=== PATIENT | male | born 1945 | race African-American/Black ===

== ENCOUNTER 2017-11-26 09:50 | Day surgery (SDC) | payer OTHER ==
[2017-11-26] MEDS ORDERED: NA CHLORIDE 0.9% 500 ML ONE (12:04)
[2017-11-26 16:22] LABS: Hematocrit 23.2 % (39.6-49.0)
== END 2017-11-26 16:10 | disposition home or self-care (01) ==
LOC: DS 09:50
PROVIDERS: ATTEND Internal Medicine Hematology & Oncology
DX: N18.9 Chronic kidney disease, unspecified (principal); D63.1 Anemia in chronic kidney disease; D50.0 Iron deficiency anemia secondary to blood loss (chronic)
CPT/HCPCS: 36415; 36430; 85014; 85018; 86850; 86900; 86901; P9016

== ENCOUNTER 2018-03-27 07:18 | Day surgery (SDC) | payer MEDICARE, OTHER ==
[2018-03-27] MEDS ORDERED: NA CHLORIDE 0.9% 500 ML ONE ×2 (07:55→10:20)
== END 2018-03-27 15:15 | disposition home or self-care (01) ==
LOC: DS 07:18
PROVIDERS: ATTEND Internal Medicine Hematology & Oncology
DX: N18.9 Chronic kidney disease, unspecified (principal); D63.1 Anemia in chronic kidney disease; D50.0 Iron deficiency anemia secondary to blood loss (chronic)
CPT/HCPCS: 36415; 36430; 85014; 85018; 86850; 86900; 86901; P9016 ×2

== ENCOUNTER 2018-07-18 07:09 | Day surgery (SDC) | payer OTHER ==
[2018-07-18] MEDS ORDERED: NA CHLORIDE 0.9% 500 ML ONE ×2 (08:05→10:44)
== END 2018-07-18 15:38 | disposition home or self-care (01) ==
LOC: DS 07:09
PROVIDERS: ATTEND Internal Medicine Hematology & Oncology
DX: D63.1 Anemia in chronic kidney disease (principal)
CPT/HCPCS: 36415; 36430; 85014; 85018; 86850; 86900; 86901; P9016 ×2

== ENCOUNTER 2018-08-30 07:34 | Day surgery (SDC) | payer OTHER ==
--- OUTSIDE RECORDS SUMMARY | 2018-08-30 08:07 | XMS REPORT ---
:1945 [facility] Address [address] [place] [address] Dr. Morales [address] [place] [address] Care Team Providers Name Role Phone Unavailable Unavailable Unavailable Problems This patient has no known problems. Allergies, Adverse Reactions, Alerts This patient has no known allergies or adverse reactions. Medications This patient has no known medications.
[2018-08-30] MEDS ORDERED: NA CHLORIDE 0.9% 250 ML ONE ×2 (08:31→11:25)
[2018-08-30 16:39] LABS: Hematocrit 26.5 % (39.6-49.0)
== END 2018-08-30 16:15 | disposition home or self-care (01) ==
LOC: DS 07:34
PROVIDERS: ATTEND Internal Medicine Hematology & Oncology
DX: D50.0 Iron deficiency anemia secondary to blood loss (chronic) (principal); D63.1 Anemia in chronic kidney disease; N18.9 Chronic kidney disease, unspecified; J44.9 Chronic obstructive pulmonary disease, unspecified
CPT/HCPCS: 36415; 86900; 86850; 86901; 85018; 85014; 36430; P9016 ×2

== ENCOUNTER 2018-09-25 09:00 | Day surgery (SDC) | payer OTHER ==
--- OUTSIDE RECORDS SUMMARY | 2018-09-25 09:08 | XMS REPORT ---
:1945 [facility] Address [address] [place] [address] Dr. Morales [address] [place] [address] Care Team Providers Name Role Phone Unavailable Unavailable Unavailable Problems This patient has no known problems. Allergies, Adverse Reactions, Alerts This patient has no known allergies or adverse reactions. Medications This patient has no known medications.
[2018-09-25] MEDS ORDERED: NA CHLORIDE 0.9% 500 ML ONE (09:31)
[2018-09-25 18:22] LABS: Hematocrit 23.1 % (39.6-49.0)
== END 2018-09-25 17:34 | disposition home or self-care (01) ==
LOC: DS 09:00
PROVIDERS: ATTEND Internal Medicine Hematology & Oncology
DX: D50.0 Iron deficiency anemia secondary to blood loss (chronic) (principal); D63.1 Anemia in chronic kidney disease; N18.9 Chronic kidney disease, unspecified
CPT/HCPCS: 36415; 86900; 86850; 86901; 85018; 85014; 36430; P9016 ×2

== ENCOUNTER → 2018-10-10 | Day surgery (SDC) | payer OTHER ==
[~2018-10-10] MED LIST: NA CHLORIDE 0.9% 250 ML ONE
--- OUTSIDE RECORDS SUMMARY | 2018-10-10 08:14 | XMS REPORT ---
:1945 Author Organization [facility] Address [address] [place] [address] Dr. Morales [address] [place] [address] Care Team Providers Name Role Phone Unavailable Unavailable Unavailable Problems This patient has no known problems. Allergies, Adverse Reactions, Alerts This patient has no known allergies or adverse reactions. Medications This patient has no known medications.
[2018-10-10 16:48] LABS: Hematocrit 21.7 % (39.6-49.0)
== END ==
LOC: DS 08:12
PROVIDERS: ATTEND Internal Medicine Hematology & Oncology
DX: N18.9 Chronic kidney disease, unspecified (principal); D63.1 Anemia in chronic kidney disease; D50.0 Iron deficiency anemia secondary to blood loss (chronic); K55.21 Angiodysplasia of colon with hemorrhage
CPT/HCPCS: 36415; 86900; 86850; 86901; 85018; 85014; 36430; P9016 ×3

== ENCOUNTER 2018-12-17 13:13 | Emergency (ER) | payer OTHER ==
--- OUTSIDE RECORDS SUMMARY | 2018-12-17 13:16 | XMS REPORT ---
:1945 [facility] Address [address] [place] [address] Dr. Morales [address] [place] [address] Care Team Providers Name Role Phone Unavailable Unavailable Unavailable Problems This patient has no known problems. Allergies, Adverse Reactions, Alerts This patient has no known allergies or adverse reactions. Medications This patient has no known medications.
--- NOTE | 2018-12-17 13:51 | RAD REPORT ---
EXAM DESCRIPTION: RAD - Chest Single View - 12/17/2018 1:45 pm CLINICAL HISTORY: Dyspnea, COPD COMPARISON: May 2016 TECHNIQUE: AP portable chest image was obtained 1334 hours . FINDINGS: Lungs are fibrotic. Emphysematous changes in the upper lung rubio noted. Lung parenchymal pattern is similar to comparison. No focal mass, consolidation or failure finding. Mediastinal and h ilar regions are normal range. Granulomatous calcifications seen. Heart and vasculature are normal. No measurable pleural effusion and no pneumothorax. No acute bony abnormality seen. No acute aortic findings suspected. IMPRESSION: COPD changes similar to May 2016. No acute finding.
[2018-12-17 14:32] LABS: Absolute Lymphocytes (CBC) 0.8 K/uL (0.7-4.9); Basophils % 1.5 % (0-1.3); Eosinophils % 7.8 % (0-4.4); Hematocrit 21.2 % (39.6-49.0); Lymphocytes % 17.3 % (15.3-44.8); MPV 10.1 fL (7.6-11.3); Monocytes % 7.9 % (3.3-12.3); RBC Red Blood Cell Count 2.28 M/uL (4.33-5.43)
[2018-12-17] MEDS ORDERED: MAGNESIUM SULFATE 1 gm IVPB 0 GM/0 ML BAG IV ONE (14:41)
[2018-12-17] MEDS ORDERED: IPRATROPIUM BROM 0.5MG/2.5ML ONE (14:41)
[2018-12-17] MEDS ORDERED: METHYLPREDNISOLONE 125 MG INJ ONE (14:41)
[2018-12-17] MEDS ORDERED: LEVALBUTEROL 1.25 MG/3 ML NEB ONE (14:41)
--- NOTE | 2018-12-17 14:47 | EKG ---
Test Date: 2018-12-17 Test Time: 13:39:19 Extension Supervisor: AG/S MEASUREMENT RESULTS: Intervals: Rate: 80 LA: 158 QRSD: 122 QT: 414 QTc: 477 Diana: P: 73 LA: 158 QRS: 12 T: 70 INTERPRETIVE STATEMENTS: Normal sinus rhythm Nonspecific intraventricular conduction delay Borderline ECG Compared to ECG 06/08/2016 17:36:35 Myocardial infarct finding no longer present Electronically Signed On 12-17-18 14:47:06 CDT by Higinio Newsome
[2018-12-17 14:49] LABS: Potassium 5.3 mmol/L (3.5-5.1)
[2018-12-17 16:06] LABS: Anisocytosis 2+; Blood Morphology Comment NOTED (NOT SEEN); Platelet Estimate ADEQ; Rouleau NOTED
--- NOTE | 2018-12-17 16:37 | EDPHYS ---
Physician Documentation [facility] Name: John Fulton Age: 73 yrs Sex: Male : 1945 Arrival Date: 12/17/2018 Time: 13:14 Bed 5 Private MD: Fidel Lunsford R ED Physician Austin Menard HPI: 12/17 13:25 This 73 yrs old Black Male presents to ER via Wheelchair with complaints of Shortness rn Of Breath. 13:25 The patient has shortness of breath with light activity. Onset: The symptoms/episode rn began/occurred yesterday. Duration: The symptoms are intermittent. The patient's shortness of breath is aggravated by exertion, light activity, walking. Severity of symptoms: At their worst the symptoms were moderate in the emergency department the symptoms are unchanged. The patient has experienced similar episodes in the past. Reports sob, began yesterday, doesn't feel sick, denies chest pain, no hemoptysis, no leg swelling, feels like COPD acting up. . Historical: - Allergies: 13:18 No Known Allergies; aj1 - PMHx: 13:18 Hypertension; iron deficiency; COPD; aj1 - Immunization history:: Flu vaccine is up to date. - Social history:: Smoking status: Patient/guardian denies using tobacco. - Ebola Screening: : Patient denies travel to an Ebola-affected area in the 21 days before illness onset. - Family history:: not pertinent. - Hospitalizations: : No recent hospitalization is reported. ROS: 13:25 Constitutional: Negative for fever, chills, and weight loss, Eyes: Negative for injury, rn pain, redness, and discharge, Cardiovascular: Negative for chest pain, palpitations, and edema, Respiratory: + sob, negative for hemoptysis or cough Abdomen/GI: Negative for abdominal pain, nausea, vomiting, diarrhea, and constipation, MS/Extremity: Negative for injury and deformity, Skin: Negative for injury, rash, and discoloration, Neuro: Negative for headache, numbness, tingling, and seizure, + generalized weakness Exam: 13:25 Constitutional: This is a well developed, well nourished patient who is awake, alert, rn + appears sob Head/Face: Normocephalic, atraumatic. Eyes: Pupils equal round and reactive to light, extra-ocular motions intact. Lids and lashes normal. Conjunctiva and sclera are non-icteric and not injected. Cornea within normal limits. Periorbital areas with no swelling, redness, or edema. ENT: no oral swelling, no stridor Cardiovascular: Regular rate and rhythm. No pulse deficits. Respiratory: + tachypnea and diminished breath sounds bilateral lung bases. + mild intercostal retractions. Skin: Warm, dry MS/ Extremity: Pulses equal, no cyanosis. Neurovascular intact. Full, normal range of motion. Equal circumference. Neuro: Awake and alert, GCS 15, oriented to person, place, time, and situation. Cranial nerves II-XII grossly intact. Motor strength 5/5 in all extremities. Sensory grossly intact. Cerebellar exam normal. Normal gait. Vital Signs: 13:18 BP 127 / 69; Pulse 89; Resp 28; Temp 98.0; Pulse Ox 98% on R/A; Weight 80.74 kg (R); aj1 Height 5 ft. 11 in. (180.34 cm) (R); Pain 0/10; 14:30 BP 132 / 78; Pulse 87; Resp 24; Pulse Ox 95% on R/A; ph 15:30 BP 122 / 76; Pulse 85; Resp 20; Pulse Ox 95% on R/A; ph 16:30 BP 136 / 74; Pulse 87; Resp 22; Temp 98.1; Pulse Ox 96% on R/A; ph 13:18 Body Mass Index 24.83 (80.74 kg, 180.34 cm) aj1 MDM: 13:19 Patient medically screened. rn 15:12 ED course: Pt states that has known anemia, had endoscopy 1-2 weeks ago, also gets seen rn by Dr. Turpin for anemia and gets intermittent shots and blood transfusions. Has f/u with Dr. Turpin tomorrow. . 16:33 Differential diagnosis: Anemia Chronic Obstructive Pulmonary Disease pneumonia, rn Pneumothorax pulmonary edema. Data reviewed: vital signs, nurses notes, lab test result(s), EKG, radiologic studies, plain films, and as a result, I will discharge patient. Counseling: I had a detailed discussion with the patient and/or guardian regarding: the historical points, exam findings, and any diagnostic results supporting the discharge/admit diagnosis, lab results, radiology results, the need for outpatient follow up, to return to the emergency department if symptoms worsen or persist or if there are any questions or concerns that arise at home. Response to treatment: the patient's symptoms have markedly improved after treatment, and as a result, I will discharge patient. ED course: Pt states back to baseline, likely combination of chronic anemia and COPD. Given option of transfusion today in addition to breathing treatments, states feels much better and would rather go home and see Dr. Turpin tomorrow. Has chronic anemia, denies active bleeding, and had recent endoscopy. Return precautions given. Pt ambulated around ER and then to bathroom, smiling and stating feels much better. . 12/17 13:25 Order name: CBC with Diff; Complete Time: 16:09 rn 12/17 13:25 Order name: Basic Metabolic Panel; Complete Time: 15:05 rn 12/17 13:25 Order name: Procalcitonin; Complete Time: 15:24 rn 12/17 13:25 Order name: XRAY Chest (1 view); Complete Time: 13:54 rn 12/17 16:05 Order name: Manual Differential; Complete Time: 16:09 EDMS 12/17 13:25 Order name: IV Start rn 12/17 13:25 Order name: EKG; Complete Time: 13:26 rn 12/17 13:25 Order name: EKG - Nurse/Tech; Complete Time: 14:20 rn Administered Medications: 14:32 Drug: Xopenex (3) 1.25 mg Route: Inhalation; ph 16:00 Follow up: Response: No adverse reaction; Marked relief of symptoms ph 14:32 Drug: AtroVENT Aerosol 0.5 mg Route: Inhalation; ph 16:00 Follow up: Response: No adverse reaction; Marked relief of symptoms ph 15:06 Drug: SOLU-Medrol 125 mg {Note: given IM to R deltoid.} Route: IVP; Site: right upper ph arm; 16:00 Follow up: Response: No adverse reaction; Marked relief of symptoms ph 15:12 Drug: Xopenex 1.25 mg Route: Inhalation; ph 16:00 Follow up: Response: No adverse reaction; Marked relief of symptoms ph 19:31 Not Given (Physician Discretion): Magnesium Sulfate 1 grams IVPB once over 1 hrs ph Disposition: 12/17/18 16:36 Discharged to Home. Impression: Chronic obstructive pulmonary disease with (acute) exacerbation, Chronic anemia. - Condition is Stable. - Discharge Instructions: Anemia, Nonspecific, Chronic Obstructive Pulmonary Disease Exacerbation. - Prescriptions for Prednisone 20 mg Oral Tablet - take 3 tablet by ORAL route once daily for 5 days; 15 tablet. Albuterol Sulfate 90 mcg/actuation Inhalation - inhale 2 puff by INHALATION route every 4-6 hours; 1 Inhaler. - Medication Reconciliation Form, Thank You Letter, Antibiotic Education, Prescription Opioid Use form. - Follow up: Shahla García MD; When: Tomorrow; Reason: Recheck today's complaints, Re-evaluation by your physician. - Problem is new. - Symptoms have improved. Signatures: Dispatcher [employer] EDMS Giselle Hdz RN RN aj1 Austin Menard MD MD rn Hall, Patricia, RN RN ph Corrections: (The following items were deleted from the chart) 17:05 16:36 12/17/2018 16:36 Discharged to Home. Impression: Chronic obstructive pulmonary ph disease with (acute) exacerbation; Chronic anemia. Condition is Stable. Forms are Medication Reconciliation Form, Thank You Letter, Antibiotic Education, Prescription Opioid Use. Follow up: Shahla Bunch; When: Tomorrow; Reason: Recheck today's complaints, Re-evaluation by your physician. Problem is new. Symptoms have improved. peggy
--- NOTE | 2018-12-17 16:37 | ER ---
Nurse's Notes [facility] Name: John Fulton Age: 73 yrs Sex: Male : 1945 Arrival Date: 12/17/2018 Time: 13:14 Bed 5 Private MD: Fidel Lunsford R Diagnosis: Chronic obstructive pulmonary disease with (acute) exacerbation;Chronic anemia Presentation: 12/17 13:17 Presenting complaint: Patient states: Shortness of breath since last night. Denies aj1 cough, denies fever. Transition of care: patient was not received from another setting of care. Onset of symptoms was December 16, 2018. Risk Assessment: Do you want to hurt yourself or someone else? Patient reports no desire to harm self or others. Initial Sepsis Screen: Does the patient meet any 2 criteria? No. Patient's initial sepsis screen is negative. Does the patient have a suspected source of infection? No. Patient's initial sepsis screen is negative. Care prior to arrival: None. 13:17 Method Of Arrival: Wheelchair aj1 13:17 Acuity: LUIS M 3 aj1 Triage Assessment: 13:18 General: Appears in no apparent distress. uncomfortable, Behavior is calm, cooperative, aj1 appropriate for age. Pain: Denies pain. Neuro: Level of Consciousness is awake, alert, obeys commands, Oriented to person, place, time, situation. Cardiovascular: Patient's skin is warm and dry. Respiratory: Airway is patent Respiratory effort is even, unlabored, Respiratory pattern is regular, symmetrical. Historical: - Allergies: 13:18 No Known Allergies; aj1 - PMHx: 13:18 Hypertension; iron deficiency; COPD; aj1 - Immunization history:: Flu vaccine is up to date. - Social history:: Smoking status: Patient/guardian denies using tobacco. - Ebola Screening: : Patient denies travel to an Ebola-affected area in the 21 days before illness onset. - Family history:: not pertinent. - Hospitalizations: : No recent hospitalization is reported. Screenin:13 Abuse screen: Denies threats or abuse. Denies injuries from another. Nutritional ph screening: No deficits noted. Tuberculosis screening: No symptoms or risk factors identified. Fall Risk None identified. Assessment: 13:45 General: Appears in no apparent distress. comfortable, slender, Behavior is calm, ph cooperative, appropriate for age, Reports fatigue for 1-2 days, Denies fever, chills. Pain: Denies pain. Neuro: Level of Consciousness is awake, alert, obeys commands, Oriented to person, place, time, situation. Cardiovascular: Reports fatigue, lightheadedness, nausea, shortness of breath, Denies chest pain, diaphoresis, palpitations, vomiting, Capillary refill < 3 seconds in bilateral fingers Patient's skin is warm and dry. Respiratory: Reports shortness of breath on exertion Airway is patent Respiratory effort is even, unlabored, Respiratory pattern is tachypnea. GI: No signs and/or symptoms were reported involving the gastrointestinal system. Derm: Skin is intact, is healthy with good turgor, Skin is pink, warm \\T\\ dry. Musculoskeletal: Circulation, motion, and sensation intact. Range of motion: intact in all extremities. 15:00 Reassessment: Patient appears in no apparent distress at this time. Patient and/or ph family updated on plan of care and expected duration. Pain level reassessed. Patient is alert, oriented x 3, equal unlabored respirations, skin warm/dry/pink. 16:00 Reassessment: Patient appears in no apparent distress at this time. Patient and/or ph family updated on plan of care and expected duration. Pain level reassessed. Patient is alert, oriented x 3, equal unlabored respirations, skin warm/dry/pink. Pt ambulated approx 100 ft, accompanied by nurse, denies SOB or dizziness, states, " I feel much better than when I got here." Spo2 91% RA upon returning to bed, ERP notified. 16:10 Reassessment: Patient appears in no apparent distress at this time. Patient and/or ph family updated on plan of care and expected duration. Pain level reassessed. Patient is alert, oriented x 3, equal unlabored respirations, skin warm/dry/pink. Dr Menard at bedside to speak w/ pt. Vital Signs: 13:18 BP 127 / 69; Pulse 89; Resp 28; Temp 98.0; Pulse Ox 98% on R/A; Weight 80.74 kg (R); aj1 Height 5 ft. 11 in. (180.34 cm) (R); Pain 0/10; 14:30 BP 132 / 78; Pulse 87; Resp 24; Pulse Ox 95% on R/A; ph 15:30 BP 122 / 76; Pulse 85; Resp 20; Pulse Ox 95% on R/A; ph 16:30 BP 136 / 74; Pulse 87; Resp 22; Temp 98.1; Pulse Ox 96% on R/A; ph 13:18 Body Mass Index 24.83 (80.74 kg, 180.34 cm) aj1 ED Course: 13:14 Patient arrived in ED. mr 13:15 Fidel Lunsford MD is Private Physician. mr 13:18 Triage completed. aj1 13:18 Arm band placed on Patient placed in an exam room. aj1 13:19 Austin Menard MD is Attending Physician. rn 13:44 XRAY Chest (1 view) In Process Unspecified. EDMS 13:47 Lisette Gray RN is Primary Nurse. ph 13:47 EKG done, by network operations technician. reviewed by Austin Menard MD. at1 14:13 Patient has correct armband on for positive identification. Placed in gown. Bed in low ph position. Call light in reach. Side rails up X 1. personnel monitor on. Pulse ox on. NIBP on. Door closed. Noise minimized. Warm blanket given. Pillow given. Head of bed elevated. 16:36 Shahla García MD is Referral Physician. rn 17:05 No provider procedures requiring assistance completed. Patient did not have IV access ph during this emergency room visit. Administered Medications: 14:32 Drug: Xopenex (3) 1.25 mg Route: Inhalation; ph 16:00 Follow up: Response: No adverse reaction; Marked relief of symptoms ph 14:32 Drug: AtroVENT Aerosol 0.5 mg Route: Inhalation; ph 16:00 Follow up: Response: No adverse reaction; Marked relief of symptoms ph 15:06 Drug: SOLU-Medrol 125 mg {Note: given IM to R deltoid.} Route: IVP; Site: right upper ph arm; 16:00 Follow up: Response: No adverse reaction; Marked relief of symptoms ph 15:12 Drug: Xopenex 1.25 mg Route: Inhalation; ph 16:00 Follow up: Response: No adverse reaction; Marked relief of symptoms ph 19:31 Not Given (Physician Discretion): Magnesium Sulfate 1 grams IVPB once over 1 hrs ph Outcome: 16:36 Discharge ordered by . rn 17:05 Patient left the ED. ph 17:05 Discharged to home ambulatory, with family. ph 17:05 Condition: improved 17:05 Discharge instructions given to patient, family, Instructed on discharge instructions, follow up and referral plans. medication usage, Demonstrated understanding of instructions, follow-up care, medications, Prescriptions given X 2. Signatures: Dispatcher [employer] EDGiselle Tsai RN RN aj1 Belgica Murphy Roman, MD MD rn Marilin Hoffmann, public health officer EKG Tat1 Lisette Gray RN RN ph
== END 2018-12-17 17:05 | disposition home or self-care (01) ==
LOC: ER 13:13
DX: J44.1 Chronic obstructive pulmonary disease with (acute) exacerbation (principal); I10 Essential (primary) hypertension; E61.1 Iron deficiency
CPT/HCPCS: 93005; 85025; 80048; 36415; 84145; 71045; J2930; 96374; 99285; J3475

== ENCOUNTER 2018-12-19 07:20 | Day surgery (SDC) | payer OTHER ==
--- OUTSIDE RECORDS SUMMARY | 2018-12-19 07:26 | XMS REPORT ---
:1945 [facility] Address [address] [place] [address] Dr. Morales [address] [place] [address] Care Team Providers Name Role Phone Unavailable Unavailable Unavailable Problems This patient has no known problems. Allergies, Adverse Reactions, Alerts This patient has no known allergies or adverse reactions. Medications This patient has no known medications.
[2018-12-19] MEDS ORDERED: NA CHLORIDE 0.9% 500 ML ONE (08:00)
[2018-12-19 15:06] LABS: Hematocrit 24.4 % (39.6-49.0)
== END 2018-12-19 15:04 | disposition home or self-care (01) ==
LOC: DS 07:20
PROVIDERS: ATTEND Internal Medicine Hematology & Oncology
DX: D50.0 Iron deficiency anemia secondary to blood loss (chronic) (principal); K55.21 Angiodysplasia of colon with hemorrhage; J44.9 Chronic obstructive pulmonary disease, unspecified
CPT/HCPCS: 36415; 86900; 86850; 86901; 85018; 85014; 36430; P9016 ×2

== ENCOUNTER 2019-02-05 07:13 | Day surgery (SDC) | payer OTHER ==
--- OUTSIDE RECORDS SUMMARY | 2019-02-05 07:15 | XMS REPORT ---
:1945 Author [facility] Address [address] [place] [address] Dr. Morales [address] [place] [address] Care Team Providers Name Role Phone Unavailable Unavailable Unavailable Problems This patient has no known problems. Allergies, Adverse Reactions, Alerts This patient has no known allergies or adverse reactions. Medications This patient has no known medications.
[2019-02-05] MEDS ORDERED: NA CHLORIDE 0.9% 250 ML ONE (07:52)
[2019-02-05] MEDS ORDERED: NA CHLORIDE 0.9% 500 ML ONE (09:55)
[2019-02-05 15:07] LABS: Hematocrit 26.1 % (39.6-49.0)
== END 2019-02-05 15:15 | disposition home or self-care (01) ==
LOC: DS 07:13
PROVIDERS: ATTEND Internal Medicine Hematology & Oncology
DX: D50.0 Iron deficiency anemia secondary to blood loss (chronic) (principal); D63.1 Anemia in chronic kidney disease; J44.9 Chronic obstructive pulmonary disease, unspecified
CPT/HCPCS: 36415; 86900; 86850; 86901; 85018; 85014; 36430; P9016 ×2

== ENCOUNTER → 2019-03-19 | Day surgery (SDC) | payer OTHER ==
[~2019-03-19] MED LIST changes: -NA CHLORIDE 0.9% 250 ML ONE; +NA CHLORIDE 0.9% 500 ML ONE
[2019-03-19 15:51] LABS: Hematocrit 27.6 % (39.6-49.0)
== END ==
LOC: DS 07:14
PROVIDERS: ATTEND Internal Medicine Hematology & Oncology
DX: N18.9 Chronic kidney disease, unspecified (principal); D63.1 Anemia in chronic kidney disease; D50.0 Iron deficiency anemia secondary to blood loss (chronic)
CPT/HCPCS: 36415; 86900; 86850; 86901; 85018; 85014; 36430; P9016 ×2

== ENCOUNTER 2019-07-18 07:22 | Day surgery (SDC) | payer OTHER ==
--- OUTSIDE RECORDS SUMMARY | 2019-07-18 07:25 | XMS REPORT ---
:1945 Author Organization [facility] Address [address] [place] [address] Dr. Morales [address] [place] [address] Care Team Providers Name Role Phone Unavailable Unavailable Unavailable Problems This patient has no known problems. Allergies, Adverse Reactions, Alerts This patient has no known allergies or adverse reactions. Medications This patient has no known medications.
[2019-07-18] MEDS ORDERED: NA CHLORIDE 0.9% 250 ML ONE (08:06)
[2019-07-18] MEDS ORDERED: NA CHLORIDE 0.9% 500 ML ONE (08:10)
[2019-07-18 12:46] VITALS: O2SAT 100
[2019-07-18 12:49] VITALS: BMI 20.3
[2019-07-18 12:56] VITALS: BP 119/54; TEMP 98.8
== END 2019-07-18 15:25 | disposition home or self-care (01) ==
LOC: DS 07:22
PROVIDERS: ATTEND Internal Medicine Hematology & Oncology
DX: D63.1 Anemia in chronic kidney disease (principal)
CPT/HCPCS: 36415 ×2; 86900; 86850; 86901; 85652; 85018; 85014; 36430; P9016 ×2; J7030; J7040

== ENCOUNTER 2020-03-17 07:50 | Day surgery (SDC) | payer OTHER ==
--- OUTSIDE RECORDS SUMMARY | 2020-03-17 07:52 | XMS REPORT | Continuity of Care Document ---
:1945 Author Organization [facility] t Address [address] [place] [address] Care Team Providers Name Role Phone Doctor Unassigned, [place] Attending Clinician Unavailable Lab, Fam Pob I Attending Clinician Unavailable Ruth CRYSTAL Attending Clinician Problems This patient has no known problems. Allergies, Adverse Reactions, Alerts This patient has no known allergies or adverse reactions. Medications This patient has no known medications. Procedures This patient has no known procedures. Encounters Start End Encounter Admission Attending Care Care Encounter Source Date/Time Date/Time Type Type Clinicians Facility Department ID 2020-03-12 2020-03-12 Orders Doctor ANGIE [id number] 00:00:00 00:00:00 Only Unassigned, VICKI [id number] [place] [facility] [id number] 2020-03-08 2020-03-08 Laboratory Lab, [facility] [id number] 09:49:29 10:09:29 Only Fam Pob I Health [id number] [place] [id number] [place] [phone] nal 0[address] 2020-02-06 2020-02-06 Office RAMIRO Miranda [id number] 08:43:41 09:03:41 Visit Svetlana Florence [id number] [place] [id number] james [phone] nal 085 Building Results This patient has no known results.
[2020-03-17] MEDS ORDERED: NA CHLORIDE 0.9% 500 ML ONE ×2 (08:30→11:01)
[2020-03-17 13:44] VITALS: TEMP 98; BMI 20.3
[2020-03-17 13:46] VITALS: BP 135/73; O2SAT 97
[2020-03-17 15:58] LABS: Hematocrit 27.3 % (39.6-49.0)
== END 2020-03-17 14:59 | disposition home or self-care (01) ==
LOC: DS 07:50
PROVIDERS: ATTEND Internal Medicine Hematology & Oncology
PROC: 30233N1 Transfusion of Nonautologous Red Blood Cells into Peripheral Vein, Percutaneous Approach (ICD-10-PCS; principal; 2020-03-17)
DX: D50.0 Iron deficiency anemia secondary to blood loss (chronic) (principal); N18.9 Chronic kidney disease, unspecified; D63.1 Anemia in chronic kidney disease
CPT/HCPCS: 36415; 86900; 86850; 86901; 85018; 85014; 36430 ×2; P9016 ×2; J7040 ×2

== ENCOUNTER 2020-05-12 07:08 | Day surgery (SDC) | payer OTHER ==
--- OUTSIDE RECORDS SUMMARY | 2020-05-12 07:11 | XMS REPORT | Continuity of Care Document ---
:1945 Author Organization [facility] t Address [address] [place] [address] Care Team Providers Name Role Phone Svetlana Miranda DO Attending Clinician Problems This patient has no known problems. Allergies, Adverse Reactions, Alerts This patient has no known allergies or adverse reactions. Medications This patient has no known medications. Procedures This patient has no known procedures. Encounters Start End Encounter Admission Attending Care Care Encounter Source Date/Time Date/Time Type Type Clinicians Facility Department ID 2020-05-07 2020-05-07 Office RAMIRO Miranda [id number] 08:33:21 08:53:21 Visit Svetlana Florence [id number] [place] [id number] [place] [phone] [facility] 085 Building Results This patient has no known results.
[2020-05-12] MEDS ORDERED: NA CHLORIDE 0.9% 500 ML ONE ×2 (07:50→11:15)
[2020-05-12 08:41] VITALS: BMI 24.7
[2020-05-12 15:05] VITALS: BP 112/50; TEMP 98.3; O2SAT 97
[2020-05-12 15:33] LABS: Hematocrit 24.1 % (39.6-49.0)
== END 2020-05-12 15:00 | disposition home health service (06) ==
LOC: DS 07:08
PROVIDERS: ATTEND Internal Medicine Hematology & Oncology
DX: D62 Acute posthemorrhagic anemia (principal); D63.1 Anemia in chronic kidney disease; J44.9 Chronic obstructive pulmonary disease, unspecified
CPT/HCPCS: 36415; 86900; 86850; 86901; 85018; 85014; 36430; P9016 ×2; J7040 ×2

== ENCOUNTER 2020-06-23 07:10 | Day surgery (SDC) | payer OTHER ==
--- OUTSIDE RECORDS SUMMARY | 2020-06-23 07:29 | XMS REPORT | Continuity of Care Document ---
:1945 Author Organization [facility] t Address [address] [place] [address] Care Team Providers Name Role Phone Doctor Unassigned, [place] Attending Clinician Unavailable Ruth CRYSTAL Attending Clinician Problems This patient has no known problems. Allergies, Adverse Reactions, Alerts This patient has no known allergies or adverse reactions. Medications This patient has no known medications. Procedures This patient has no known procedures. Encounters Start End Encounter Admission Attending Care Care Encounter Source Date/Time Date/Time Type Type Clinicians Facility Department ID 2020-06-14 2020-06-14 Orders Doctor ADAMS [id number] 00:00:00 00:00:00 Only UnassignedVICKI [id number] [place] [facility] [id number] 2020-05-31 2020-05-31 Orders Doctor ADAMS [id number] 00:00:00 00:00:00 Only UnassignedVICKI [id number] [place] [facility] [id number] 2020-05-07 2020-05-07 Office RAMIRO Miranda [id number] 08:33:21 08:53:21 Visit Svetlana Florence [id number] [place] [id number] [place] [phone] nal 085 Building Results This patient has no known results.
[2020-06-23] MEDS ORDERED: NA CHLORIDE 0.9% 250 ML ONE (07:54)
[2020-06-23 08:29] VITALS: BMI 24.1
[2020-06-23 10:36] VITALS: BP 99/79; TEMP 98.2; O2SAT 97
[2020-06-23 12:42] LABS: Hematocrit 23.3 % (39.6-49.0)
== END 2020-06-23 13:15 | disposition home or self-care (01) ==
LOC: DS 07:10
PROVIDERS: ATTEND Internal Medicine Hematology & Oncology
DX: D50.0 Iron deficiency anemia secondary to blood loss (chronic) (principal); K55.21 Angiodysplasia of colon with hemorrhage; K29.01 Acute gastritis with bleeding
CPT/HCPCS: 36415; 86900; 86850; 86901; 85018; 85014; 36430; P9016; J7050

== ENCOUNTER 2020-09-01 07:09 | Day surgery (SDC) | payer OTHER ==
[2020-09-01] MEDS ORDERED: NA CHLORIDE 0.9% 250 ML ONE ×2 (08:45→11:14)
[2020-09-01 09:37] VITALS: BMI 25.0
[2020-09-01 15:23] VITALS: BP 120/60; TEMP 98.4; O2SAT 98
[2020-09-01 15:28] LABS: Hematocrit 24.8 % (39.6-49.0)
== END 2020-09-01 15:23 | disposition home or self-care (01) ==
LOC: DS 07:09
PROVIDERS: ATTEND Internal Medicine Medical Oncology
DX: D50.0 Iron deficiency anemia secondary to blood loss (chronic) (principal); D63.1 Anemia in chronic kidney disease
CPT/HCPCS: 36415; 86900; 86850; 86901; 85018; 85014; 36430; P9016 ×2; J7050 ×2

== ENCOUNTER 2020-10-21 07:08 | Day surgery (SDC) | payer OTHER ==
[2020-10-21] MEDS ORDERED: NA CHLORIDE 0.9% 500 ML ONE (08:46)
[2020-10-21 08:52] VITALS: BP 117/49; TEMP 98.8; O2SAT 96; BMI 23.6
[2020-10-21 17:43] LABS: Hematocrit 28.6 % (39.6-49.0)
== END 2020-10-21 17:40 | disposition home or self-care (01) ==
LOC: DS 07:08
PROVIDERS: ATTEND Internal Medicine Hematology & Oncology
DX: D50.0 Iron deficiency anemia secondary to blood loss (chronic) (principal); N18.9 Chronic kidney disease, unspecified; J44.9 Chronic obstructive pulmonary disease, unspecified; K92.2 Gastrointestinal hemorrhage, unspecified
CPT/HCPCS: 36415; 86900; 86850; 86901; 85018; 85014; 36430; P9016 ×2; J7050

== ENCOUNTER 2020-11-24 06:59 | Day surgery (SDC) | payer OTHER ==
[2020-11-24] MEDS ORDERED: NA CHLORIDE 0.9% 250 ML ONE ×2 (08:25→10:38)
[2020-11-24 10:13] VITALS: BMI 23.6
[2020-11-24 14:41] VITALS: BP 131/61; TEMP 97.2; O2SAT 97
[2020-11-24 15:04] LABS: Hematocrit 26.3 % (39.6-49.0)
== END 2020-11-24 14:55 | disposition home health service (06) ==
LOC: DS 06:59
PROVIDERS: ATTEND Internal Medicine Medical Oncology
DX: N18.9 Chronic kidney disease, unspecified (principal); D63.1 Anemia in chronic kidney disease; D50.0 Iron deficiency anemia secondary to blood loss (chronic)
CPT/HCPCS: 36415; 86900; 86850; 86901; 85018; 85014; 36430; P9016 ×2; J7050 ×2

== ENCOUNTER 2021-02-09 07:04 | Day surgery (SDC) | payer OTHER ==
[2021-02-09] MEDS ORDERED: NA CHLORIDE 0.9% 250 ML ONE ×2 (08:02→10:41)
[2021-02-09 09:07] VITALS: BMI 23.6
[2021-02-09 15:05] LABS: Hematocrit 24.8 % (39.6-49.0)
[2021-02-09 16:44] VITALS: BP 126/53; TEMP 97.5; O2SAT 100
== END 2021-02-09 15:00 | disposition home or self-care (01) ==
LOC: DS 07:04
PROVIDERS: ATTEND Internal Medicine Hematology & Oncology
DX: N18.9 Chronic kidney disease, unspecified (principal); D63.1 Anemia in chronic kidney disease; D50.0 Iron deficiency anemia secondary to blood loss (chronic)
CPT/HCPCS: 36415; 86900; 86850; 86901; 85018; 85014; 36430; P9016 ×2; J7050 ×2

== ENCOUNTER 2021-02-23 07:05 | Day surgery (SDC) | payer OTHER ==
[2021-02-23] MEDS ORDERED: NA CHLORIDE 0.9% 250 ML ONE ×2 (08:07→09:35)
[2021-02-23 08:28] VITALS: BMI 24.8
[2021-02-23 14:27] VITALS: BP 118/54; TEMP 97.5; O2SAT 95
[2021-02-23 14:28] LABS: Hematocrit 27.5 % (39.6-49.0)
== END 2021-02-23 14:25 | disposition home or self-care (01) ==
LOC: DS 07:05
PROVIDERS: ATTEND Internal Medicine Hematology & Oncology
DX: N18.9 Chronic kidney disease, unspecified (principal); D63.1 Anemia in chronic kidney disease; K92.2 Gastrointestinal hemorrhage, unspecified; D58.0 Hereditary spherocytosis
CPT/HCPCS: 36415; 86900; 86850; 86901; 85018; 85014; 36430; P9016 ×2; J7050 ×2

== ENCOUNTER 2021-04-21 07:04 | Day surgery (SDC) | payer OTHER ==
[2021-04-21] MEDS ORDERED: NA CHLORIDE 0.9% 250 ML ONE ×2 (08:10→11:52)
[2021-04-21 08:54] VITALS: BMI 23.4
[2021-04-21 14:28] VITALS: TEMP 97.7
[2021-04-21 14:31] VITALS: BP 141/55; O2SAT 95
[2021-04-21 16:28] LABS: Hematocrit 26.1 % (39.6-49.0)
== END 2021-04-21 16:10 | disposition home or self-care (01) ==
LOC: DS 07:04
PROVIDERS: ATTEND Internal Medicine Hematology & Oncology
DX: N18.9 Chronic kidney disease, unspecified (principal); D63.1 Anemia in chronic kidney disease; D50.0 Iron deficiency anemia secondary to blood loss (chronic); K92.2 Gastrointestinal hemorrhage, unspecified; J44.9 Chronic obstructive pulmonary disease, unspecified
CPT/HCPCS: 36415; 86900; 86850; 86901; 85018; 85014; 36430; P9016 ×2; J7050 ×2

== ENCOUNTER 2021-06-01 07:02 | Day surgery (SDC) | payer OTHER ==
[2021-06-01] MEDS ORDERED: NA CHLORIDE 0.9% 250 ML ONE ×2 (07:16→09:23)
[2021-06-01 08:54] VITALS: BMI 24.5
[2021-06-01 13:41] VITALS: BP 118/45; TEMP 98.4; O2SAT 100
[2021-06-01 15:41] LABS: Hematocrit 26.4 % (39.6-49.0)
== END 2021-06-01 15:15 | disposition home or self-care (01) ==
LOC: DS 07:02
PROVIDERS: ATTEND Internal Medicine Medical Oncology
DX: D64.9 Anemia, unspecified (principal); N18.9 Chronic kidney disease, unspecified; J44.9 Chronic obstructive pulmonary disease, unspecified; K92.2 Gastrointestinal hemorrhage, unspecified
CPT/HCPCS: 36415; 86900; 86850; 86901; 85018; 85014; 36430; P9016 ×2; J7050 ×2

== ENCOUNTER 2021-07-13 07:05 | Day surgery (SDC) | payer OTHER ==
[2021-07-13] MEDS ORDERED: NA CHLORIDE 0.9% 250 ML ONE ×2 (08:11→10:48)
[2021-07-13 09:02] VITALS: BMI 22.1
[2021-07-13 13:51] VITALS: BP 121/52; TEMP 98; O2SAT 100
[2021-07-13 15:53] LABS: Hematocrit 25.2 % (39.6-49.0)
== END 2021-07-13 15:58 | disposition home or self-care (01) ==
LOC: DS 07:05
PROVIDERS: ATTEND Internal Medicine Hematology & Oncology
DX: D50.0 Iron deficiency anemia secondary to blood loss (chronic) (principal); N18.9 Chronic kidney disease, unspecified; D63.1 Anemia in chronic kidney disease
CPT/HCPCS: 36415; 86900; 86850; 86901; 85018; 85014; 36430; P9016 ×2; J7050 ×2

== ENCOUNTER 2021-08-10 07:07 | Day surgery (SDC) | payer OTHER ==
[2021-08-10] MEDS ORDERED: NA CHLORIDE 0.9% 250 ML ONE ×2 (08:00→10:56)
[2021-08-10 08:42] VITALS: BP 105/48; TEMP 97.7; O2SAT 100; BMI 22.1
[2021-08-10 15:38] LABS: Hematocrit 25.1 % (39.6-49.0)
== END 2021-08-10 15:21 | disposition home or self-care (01) ==
LOC: DS 07:07
PROVIDERS: ATTEND Internal Medicine Medical Oncology
DX: D50.0 Iron deficiency anemia secondary to blood loss (chronic) (principal); D63.1 Anemia in chronic kidney disease; N18.9 Chronic kidney disease, unspecified; Q27.39 Arteriovenous malformation, other site; K92.2 Gastrointestinal hemorrhage, unspecified
CPT/HCPCS: 36415; 86900; 86850; 86901; 85018; 85014; 36430; P9016 ×2; J7050 ×2

== ENCOUNTER 2021-09-20 09:19 | Observation (INO) | payer OTHER ==
--- OUTSIDE RECORDS SUMMARY | 2021-09-20 09:28 | XMS REPORT | Continuity of Care Document ---
:1945 Author Organization [facility] t Address [address] [place] [address] Care Team Providers Name Role Phone ERWINBOBJELANI GUIDO Patti Primary Care Physician Unavailable MARIA INES Attending Clinician Unavailable MARIA INES Attending Clinician Unavailable Jonatan GODFREY Attending Clinician Unavailable GABBY Attending Clinician Unavailable Bob TAI, S Attending Clinician El TAI Attending Clinician Gabby DO Attending Clinician Maria Ines DO Attending Clinician Doctor Unassigned, Name Attending Clinician Unavailable GABBY Admitting Clinician Unavailable Gabby CRYSTAL Admitting Clinician Payers Payer Name Policy Type Policy Number Effective Date Expiration Date Marivel vega MEDICARE PART A [id number] 2003 \\T\\ B 00:00:00 JAYSON [id number] 2018 00:00:00 Problems Condition Condition Condition Status Onset Resolution Last Treating Co mments Source Name Details Category Date Date Treatment Clinician Date Acute on Acute on Disease Active 2020-0 Unive rs chronic chronic 4-18 ity of diastolic diastolic 00:00: [place] congestive congestive 00 Me dical heart heart Branch failure failure ALMAZ (acute ALMAZ (acute Disease Active 2020-0 U nivers kidney kidney 4-18 ity of injury) injury) 00:00: [place] [address] Medical Branch COPD COPD Disease Active 2020-0 Univers exacerbati exacerbati 4-18 it y of on on 00:00: [place] [address] Medical Branch Aortic Aortic Disease Active 2020-0 Univers stenosis, stenosis, 4-18 ity of mild mild 00:00: [place] 00 [facility] HUYNH HUYNH Disease Active Univers (dyspnea (dyspnea 4-16 ity of on on 00:00: [place] exertion) exertion) [facility] Elevated Elevated Disease Active Unive rs brain brain 4-16 ity of natriureti natriureti 00:[place] c peptide c peptide [facility] (BNP) (BNP) [place] level level Symptomati Symptomati Disease Active U nivers c anemia c anemia 2-28 ity of 00:00: [place] 00 [facility] Allergies, Adverse Reactions, Alerts Allergy Allergy Status Severity Reaction(s) Onset Inactive Treating Comm ents Source Name Type Date Date Clinician NO KNOWN Drug Active [facility] ALLERGIE Class ity of S [facility] Social History Social Habit Start Date Stop Date Quantity Comments Source Exposure to Not sure [facility] SARS-CoV-2 (event) [facility] Alcohol intake 2021-09-07 2021-09-07 Current [place] of 00:00:00 00:00:00 non-drinker of [facility] alcohol Branch (finding) Education 2021-09-05 2021-09-05 12 University of 00:00:00 00:00:00 [facility] Cigarettes smoked 2018-08-22 2018-08-22 Univers ity of current (pack per 00:00:00 00:00:00 ) - Reported Branch Cigarette 2018-08-22 2018-08-22 University of pack-years 00:00:00 00:00:00 [facility] Tobacco use and 2018-08-22 2018-08-22 Never used Universit y of exposure 00:00:00 00:00:00 [facility] History of tobacco 1999-06-25 Cigarette Smoker University of use 00:00:00 [facility] Sex Ass[birth year] At [birth year] Universit y of 00:00:00 00:00:00 [facility] Smoking Status Start Date Stop Date Source Former smoker 2018-08-22 00:00:00 2018-08-22 00:00:00 Universi ty of [facility] Medications Ordered Filled Start Stop Current Ordering Indication Dosage Frequency Signature Comments Components Source Medication Medication Date Date Medication? Clinician (SIG) Name Name famotidine Yes 20mg 20 mg, Unive rs (PEPCID AC) 3-17 Oral, ity of tablet 20 14:00: DAILY, [place] mg 00 First dose Medical on Shannan Branch 09/08/21 at 0900, Until Discontinu ed, Routine metFORMIN 2021-0 Yes 500mg Take 500 Uni vers 500 mg 3-16 mg by ity of tablet 14:00: mouth [place] 52 daily. Medical Indication Branch s: Dr. Lunsford, PCP, ordered for DM amLODIPine 0 Yes 5mg Take 5 mg Un ezequiel 10 mg 3-16 by mouth ity of tablet 14:00: daily. [place] 52 Indication Medical s: dose Branch decreased by Dr. Lunsford 06/15/20 due to low BP. metFORMIN Yes 500mg Take 500 Uni vers 500 mg 3-16 mg by ity of tablet 14:00: mouth [place] 52 daily. Medical Indication Branch s: Dr. Lunsford, PCP, ordered for DM amLODIPine Yes 5mg Take 5 mg Un ezequiel 10 mg 3-16 by mouth ity of tablet 14:00: daily. [place] [address] Indication Medical s: dose Branch decreased by Dr. Lunsford 06/15/20 due to low BP. famotidine 2021- No 20mg 20 mg, Univ ers (PEPCID AC) 3-16 -16 Oral, ity of tablet 20 09:15: 09:46 ONCE, 1 [place] mg 00 :00 dose, On Medical Wed Branch 09/07/21 at 0415, Routine levoFLOXaci 2021-0 2021- Yes [id number] 750mg Take 1 Univers n 750 mg -16 -21 tablet by ity o f tablet 00:00: 04:59 mouth [place] 00 :00 every 24 Medical (twenty-fo Branch ur) hours for 4 days. levoFLOXaci 2021-0 2021- Yes [id number] 750mg Take 1 Univers n 750 mg -16 -21 tablet by ity o f tablet 00:00: 04:59 mouth [place] 00 :00 every 24 Medical (twenty-fo Branch ur) hours for 4 days. heparin 2021-0 Yes 5000U 5,000 Univers (porcine) 3-14 Units, ity of injection 19:00: [place]cut[place]o [place] 5,000 Units 00 us, Q8H, Medi jessica First dose Branch on Sun09/05/21 at 1400, Until Discontinu ed, Routine cefTRIAXone Yes 1000mg 1,000 mg, Univers (ROCEPHIN) -14 IV ity of 1,000 mg in 17:15: Piggyback, [place] NaCl 0.9% 00 Q24H ABX, Medic al (NS) 50 mL First dose Bra nch MINI-BAG on Sun09/05/21 at 1215, Until Discontinu ed, Administer over 30 Minutes, 50 mL
Reas on for Anti-Infec tive: Empiric Therapy for Suspected Infection< br>Empiric Therapy Site: Respirator y
Durat ion of therapy: 7 days NaCl 0.9% 2021- Yes 500mL at 999 Univ ers (NS) bolus 09-05 03-19 mL/hr, 500 it y of infusion 17:15: 02:47 mL, IV [place] 500 mL 00 :00 Infusion, Medical ONCE, 1 Branch dose, On Sun09/05/21 at 1215, STAT azithromyci 2021- Yes 500mg 500 mg, IV Univers n - 03-17 Piggyback, ity of (ZITHROMAX) 17:15: 17:14 Q24H ABX, [place] 500 mg in 00 :00 3 doses, Medica l NaCl 0.9% First dose Bran ch (NS) 250 mL on Sun VIAL-MATE 09/05/21 at IV 1215, Last piggyback dose on Sun09/07/21 at 1215, Administer over 60 Minutes, 250 mL
Reas on for Anti-Infec tive: Empiric Therapy for Suspected Infection< br>Empiric Therapy Site: Respirator y
Durat ion of therapy: 72 hours Sliding 2021-0 Yes Subcutaneo Univ ers Scale 3-14 us, TID ity of Insulin - 17:00: MEALS+HS, Pi[place] as Lispro 00 First dose Medical (HumaLOG) + on Sun Branch Fsbg 09/05/21 at Testing 1200, Until Discontinu ed, Routine ipratropium Yes 3mL 3 mL, Unive rs -albuteroL 14 Inhalation ity of (DUONEB) 17:00: , Q6H, [place] 0.5 mg-3 00 First dose Medic al mg(2.5 mg on [facility] base)/3 mL 09/05/21 at nebulizer 1200, solution 3 Until mL Discontinu ed, Routine iopamidol 0 2021- No [id number] 100mL 100 mL, Univers (ISOVUE 14 03-14 Intravenou ity o f 370-500 mL) 16:30: 16:45 s, ONCE, 1 [place] injection 00 :00 dose, On Medica l 100 mL [facility] 09/05/21 at 1145, Routine glucagon 2021-0 Yes 1mg 1 mg, Univers (GLUCAGEN 14 Intramuscu ity of DIAGNOSTIC 15:17: lar, PRN, [place] KIT) 57 Starting Medical injection 1 on [facility] mg 09/05/21 at 1017, Until Discontinu ed, BENJAMIN, Blood Glucose < or = 70 mg/dL and patient is unable to swallow or has mental changes. dextrose 50 2021-0 Yes 25mL 25 mL, Univ ers % in water 09-05 Slow IV ity of (D50W) 15:17: Push, PRN, [place] injection 57 Starting Medica l 25 mL on [facility] 09/05/21 at 1017, Until Discontinu ed, BENJAMIN, Blood Glucose < or = 70 mg/dL and patient is unable to swallow or has mental status changes. tamsulosin 0 Yes .4mg 0.4 mg, Univ ers (FLOMAX) 3-14 Oral, ity of capsule 0.4 14:00: DAILY, [place] mg 00 First dose Medical on [facility] 09/05/21 at 0900, Until Discontinu ed, Routine furosemide 2021-0 Yes 40mg 40 mg, Unive rs (LASIX) 3-14 Oral, ity of tablet 40 14:00: DAILY, [place] mg 00 First dose Medical on [facility] 09/05/21 at 0900, Until Discontinu ed, Routine amLODIPine 2021-0 Yes 5mg 5 mg, Univer s (NORVASC) 3-14 Oral, ity of tablet 5 mg 14:00: DAILY, [place] 00 First dose Medical on [facility] 09/05/21 at 0900, Until Discontinu ed, Routine allopurinoL 2022-0 Yes 100mg 100 mg, Un ezequiel (ZYLOPRIM) 3-14 Oral, ity of tablet 100 14:00: DAILY, [place] mg 00 First dose Medical on Sun Branch 09/05/21 at 0900, Until Discontinu ed, Routine ondansetron Yes 4mg 4 mg, Slow Univers (ZOFRAN 3-14 IV Push, ity of (PF)) 12:18: Q6HPRN, [place] injection 4 10 Starting Medi jessica mg on Sun Branch 09/05/21 at 0718, Until Discontinu ed, Routine, Nausea and Vomiting (N/V) acetaminoph Yes 650mg 650 mg, Un ezequiel en 3-14 Oral, ity of (TYLENOL) 12:18: Q6HPRN, [place] tablet 650 00 Starting Medic al mg on Sun Branch 09/05/21 at 0718, Until Discontinu ed, Routine, Pain (scale 1-3) metFORMIN 2020-06 Yes 500mg Take 500 Uni vers 500 mg 1-18 mg by ity of tablet 11:24: mouth [place] 36 daily. Medical Indication Branch s: Dr. Lunsford, PCP, ordered for DM amLODIPine 2020-06 Yes 5mg Take 5 mg Un ezequiel 10 mg 1-18 by mouth ity of tablet 11:24: daily. [place] [address] Indication Medical s: dose Branch decreased by Dr. Lunsford 06/15/20 due to low BP. metFORMIN 2020-06 Yes 500mg Take 500 Uni vers 500 mg 1-18 mg by ity of tablet 11:24: mouth [place] 36 daily. Medical Indication Branch s: Dr. Lunsford, PCP, ordered for DM amLODIPine 2020-06 Yes 5mg Take 5 mg Un ezequiel 10 mg 1-18 by mouth ity of tablet 11:24: daily. [place] [address] Indication Medical s: dose Branch decreased by Dr. Lunsford 06/15/20 due to low BP. metFORMIN 2020-06 Yes 500mg Take 500 Uni vers 500 mg 1-18 mg by ity of tablet 11:24: mouth [place] 36 daily. Medical Indication Branch s: Dr. Lunsford, PCP, ordered for DM amLODIPine 2020-06 Yes 5mg Take 5 mg Un ezequiel 10 mg 1-18 by mouth ity of tablet 11:24: daily. [place] [address] Indication Medical s: dose Branch decreased by Dr. Lunsford 06/15/20 due to low BP. metFORMIN 2020-06 Yes 500mg Take 500 Uni vers 500 mg 1-18 mg by ity of tablet 11:24: mouth [place] 36 daily. Medical Indication Branch s: Dr. Lunsford, PCP, ordered for DM amLODIPine 2020-06 Yes 5mg Take 5 mg Un ezequiel 10 mg 1-18 by mouth ity of tablet 11:24: daily. [place] 36 Indication Medical s: dose Branch decreased by Dr. Lunsford 06/15/20 due to low BP. tiotropium Yes [id number] 18ug Inhale 1 Univers 18 mcg 4-09 capsule ity of inhalation 00:00: daily. [place] [facility] Branch tiotropium Yes [id number] 18ug Inhale 1 Univers 18 mcg 4-09 capsule ity of inhalation 00:00: daily. [address] tiotropium Yes [id number] 18ug Inhale 1 Univers 18 mcg 4-09 capsule ity of inhalation 00:00: daily. [place] [facility] tiotropium Yes [id number] 18ug Inhale 1 Univers 18 mcg 4-09 capsule ity of inhalation 00:00: daily. [address] Branch tiotropium Yes [id number] 18ug Inhale 1 Univers 18 mcg 4-09 capsule ity of inhalation 00:00: daily. [address] tiotropium Yes [id number] 18ug Inhale 1 Univers 18 mcg 4-09 capsule ity of inhalation 00:00: daily. [place] [address] Medical Branch budesonide- Yes [id number] 2{puff} Inhale 2 Univers formoteroL 8-14 Puffs 2 ity of (SYMBICORT) 00:00: (two) [place] 160-4.5 00 times Medical mcg/actuati daily. Branch on inhaler budesonide- Yes [id number] 2{puff} Inhale 2 Univers formoteroL 8-14 Puffs 2 ity of (SYMBICORT) 00:00: (two) [place] 160-4.5 00 times Medical mcg/actuati daily. Branch on inhaler budesonide- Yes [id number] 2{puff} Inhale 2 Univers formoteroL 8-14 Puffs 2 ity of (SYMBICORT) 00:00: (two) [place] 160-4.5 00 times Medical mcg/actuati daily. Branch on inhaler budesonide- 2020-0 Yes [id number] 2{puff} Inhale 2 Univers formoteroL 8-14 Puffs 2 ity of (SYMBICORT) 00:00: (two) [place] 160-4.5 00 times Medical mcg/actuati daily. Branch on inhaler budesonide- 2020-0 Yes [id number] 2{puff} Inhale 2 Univers formoteroL 8-14 Puffs 2 ity of (SYMBICORT) 00:00: (two) [place] 160-4.5 00 times Medical mcg/actuati daily. Branch on inhaler budesonide- 2019-0 Yes [id number] 2{puff} Inhale 2 Univers formoteroL 8-14 Puffs 2 ity of (SYMBICORT) 00:00: (two) [place] 160-4.5 00 times Medical mcg/actuati daily. Branch on inhaler allopurinoL 2020-0 Yes [id number] 100mg Take 1 Univers 100 mg 4-19 tablet by ity of tablet 00:00: mouth [place] 00 daily. Medical Branch allopurinoL 2020-0 Yes [id number] 100mg Take 1 Univers 100 mg 4-19 tablet by ity of tablet 00:00: mouth [place] 00 daily. Medical Branch allopurinoL 2020-0 Yes [id number] 100mg Take 1 Univers 100 mg 4-19 tablet by ity of tablet 00:00: mouth [place] 00 daily. Medical Branch allopurinoL 2020-0 Yes [id number] 100mg Take 1 Univers 100 mg 4-19 tablet by ity of tablet 00:00: mouth [place] 00 daily. Medical Branch allopurinoL 2020-0 Yes [id number] 100mg Take 1 Univers 100 mg 4-19 tablet by ity of tablet 00:00: mouth [place] 00 daily. Medical Branch allopurinoL 2020-0 Yes [id number] 100mg Take 1 Univers 100 mg 4-19 tablet by ity of tablet 00:00: mouth [place] 00 daily. Medical Branch furosemide 2020-0 Yes [id number] 40mg Take 1 Univers 40 mg 4-18 tablet by ity of tablet 00:00: mouth [place] 00 daily. Medical Branch tamsulosin 2020-0 Yes [id number] .4mg Take 1 Univers 0.4 mg 24 4-18 capsule by ity of hr capsule 00:00: mouth [place] 00 daily. Medical Branch furosemide 2020-0 Yes [id number] 40mg Take 1 Univers 40 mg 4-18 tablet by ity of tablet 00:00: mouth [place] 00 daily. Medical Branch tamsulosin 2020-0 Yes [id number] .4mg Take 1 Univers 0.4 mg 24 4-18 capsule by ity of hr capsule 00:00: mouth [place] 00 daily. Medical Branch furosemide 2020-0 Yes [id number] 40mg Take 1 Univers 40 mg 4-18 tablet by ity of tablet 00:00: mouth [place] 00 daily. Medical Branch tamsulosin 2020-0 Yes [id number] .4mg Take 1 Univers 0.4 mg 24 4-18 capsule by ity of hr capsule 00:00: mouth [place] 00 daily. Medical Branch furosemide 2020-0 Yes [id number] 40mg Take 1 Univers 40 mg 4-18 tablet by ity of tablet 00:00: mouth [place] 00 daily. Medical Branch tamsulosin 2020-0 Yes [id number] .4mg Take 1 Univers 0.4 mg 24 4-18 capsule by ity of hr capsule 00:00: mouth [place] 00 daily. Medical Branch furosemide 2020-0 Yes [id number] 40mg Take 1 Univers 40 mg 4-18 tablet by ity of tablet 00:00: mouth [place] 00 daily. Medical Branch tamsulosin 2020-0 Yes [id number] .4mg Take 1 Univers 0.4 mg 24 4-18 capsule by ity of hr capsule 00:00: mouth [place] 00 daily. Medical Branch furosemide 2020-0 Yes [id number] 40mg Take 1 Univers 40 mg 4-18 tablet by ity of tablet 00:00: mouth [place] 00 daily. Medical Branch tamsulosin 2020-0 Yes [id number] .4mg Take 1 Univers 0.4 mg 24 4-18 capsule by ity of hr capsule 00:00: mouth [place] 00 daily. Medical Branch predniSONE 2019-0 Yes [id number] 40mg Take 2 Univers 20 mg 3-01 tablets by ity of tablet 00:00: mouth [place] 00 daily. Medical Branch predniSONE 2019-0 Yes [id number] 40mg Take 2 Univers 20 mg 3-01 tablets by ity of tablet 00:00: mouth [place] 00 daily. Medical Branch predniSONE 2019-0 Yes [id number] 40mg Take 2 Univers 20 mg 3-01 tablets by ity of tablet 00:00: mouth [place] 00 daily. Medical Branch predniSONE 2019-0 Yes [id number] 40mg Take 2 Univers 20 mg 3-01 tablets by ity of tablet 00:00: mouth [place] 00 daily. Medical Branch predniSONE 2019-0 Yes [id number] 40mg Take 2 Univers 20 mg 3-01 tablets by ity of tablet 00:00: mouth [place] 00 daily. Medical Branch predniSONE 2019-0 Yes [id number] 40mg Take 2 Univers 20 mg 3-01 tablets by ity of tablet 00:00: mouth [place] 00 daily. Medical Branch ipratropium 2019-0 Yes [id number] .5mg Inhale 2.5 Univers 0.02 % 2-28 mL every 4 ity of nebulizer 00:00: (four) [place] solution 00 hours as Medical needed for Branch Wheezing or Shortness of Breath. albuterol 2019-0 Yes [id number] 2.5mg Inhale 3 Univers 2.5 mg /3 2-28 mL every 4 ity of mL (0.083 00:00: (four) [place] %) 00 hours as Medical nebulizer needed for Bran ch solution Wheezing or Shortness of Breath. ipratropium 2019-0 Yes [id number] .5mg Inhale 2.5 Univers 0.02 % 2-28 mL every 4 ity of nebulizer 00:00: (four) [place] solution 00 hours as Medical needed for Branch Wheezing or Shortness of Breath. albuterol 2019-0 Yes [id number] 2.5mg Inhale 3 Univers 2.5 mg /3 2-28 mL every 4 ity of mL (0.083 00:00: (four) [place] %) 00 hours as Medical nebulizer needed for Bran ch solution Wheezing or Shortness of Breath. ipratropium 2019-0 Yes [id number] .5mg Inhale 2.5 Univers 0.02 % 2-28 mL every 4 ity of nebulizer 00:00: (four) [place] solution 00 hours as Medical needed for Branch Wheezing or Shortness of Breath. albuterol 2019-0 Yes [id number] 2.5mg Inhale 3 Univers 2.5 mg /3 2-28 mL every 4 ity of mL (0.083 00:00: (four) [place] %) 00 hours as Medical nebulizer needed for Bran ch solution Wheezing or Shortness of Breath. ipratropium 2019-0 Yes [id number] .5mg Inhale 2.5 Univers 0.02 % 2-28 mL every 4 ity of nebulizer 00:00: (four) [place] solution 00 hours as Medical needed for Branch Wheezing or Shortness of Breath. albuterol 2019-0 Yes [id number] 2.5mg Inhale 3 Univers 2.5 mg /3 2-28 mL every 4 ity of mL (0.083 00:00: (four) [place] %) 00 hours as Medical nebulizer needed for Bran ch solution Wheezing or Shortness of Breath. ipratropium 2019-0 Yes [id number] .5mg Inhale 2.5 Univers 0.02 % 2-28 mL every 4 ity of nebulizer 00:00: (four) [place] solution 00 hours as Medical needed for Branch Wheezing or Shortness of Breath. albuterol 2019-0 Yes [id number] 2.5mg Inhale 3 Univers 2.5 mg /3 2-28 mL every 4 ity of mL (0.083 00:00: (four) [place] %) 00 hours as Medical nebulizer needed for Bran ch solution Wheezing or Shortness of Breath. ipratropium 2019-0 Yes [id number] .5mg Inhale 2.5 Univers 0.02 % 2-28 mL every 4 ity of nebulizer 00:00: (four) [place] solution 00 hours as Medical needed for Branch Wheezing or Shortness of Breath. albuterol 2019-0 Yes [id number] 2.5mg Inhale 3 Univers 2.5 mg /3 2-28 mL every 4 ity of mL (0.083 00:00: (four) [place] %) 00 hours as Medical nebulizer needed for Bran ch solution Wheezing or Shortness of Breath. Immunizations Ordered Filled Immunization Date Status Comments [facility] e Immunization Name Name Influenza High Dose 2021-05-25 Completed Unive rsity of 00:00:00 [facility] Influenza High Dose 2021-05-25 Completed Unive rsity of 00:00:00 [facility] SARS-COV-2 COVID-19 2021-03-28 Completed Unive rsity of PFIZER VACCINE 00:00:00 [facility] SARS-COV-2 COVID-19 2021-03-28 Completed Unive rsity of PFIZER VACCINE 00:00:00 [facility] SARS-COV-2 COVID-19 2021-03-28 Completed Unive rsity of PFIZER VACCINE 00:00:00 [facility] SARS-COV-2 COVID-19 2021-03-28 Completed Unive rsity of PFIZER VACCINE 00:00:00 [facility] SARS-COV-2 COVID-19 2021-03-28 Completed Unive rsity of PFIZER VACCINE 00:00:00 [facility] SARS-COV-2 COVID-19 2021-03-28 Completed Unive rsity of PFIZER VACCINE 00:00:00 [facility] SARS-COV-2 COVID-19 2020-08-19 Completed Unive rsity of PFIZER VACCINE 00:00:00 [facility] SARS-COV-2 COVID-19 2020-08-19 Completed Unive rsity of PFIZER VACCINE 00:00:00 [facility] SARS-COV-2 COVID-19 2020-07-12 Completed Unive rsity of PFIZER VACCINE 00:00:00 [facility] SARS-COV-2 COVID-19 2020-07-12 Completed Unive rsity of PFIZER VACCINE 00:00:00 [facility] Zoster Vaccine 2019-06-05 Completed University of Recombinant 00:00:00 [facility] Zoster Vaccine 2019-06-05 Completed University of Recombinant 00:00:00 [facility] Zoster Vaccine 2019-06-05 Completed University of Recombinant 00:00:00 [facility] Zoster Vaccine 2019-06-05 Completed University of Recombinant 00:00:00 [facility] Zoster Vaccine 2019-06-05 Completed University of Recombinant 00:00:00 [facility] Zoster Vaccine 2019-06-05 Completed University of Recombinant 00:00:00 [facility] Influenza Virus 2018-07-22 Completed Universit y of Vaccine 00:00:00 [facility] Pneumococcal 2018-07-22 Completed University o f Polysaccharide, 00:00:00 [place] Med ical PPSV23 (PNEUMOVAX) [place] Influenza Virus 2018-07-22 Completed Universit y of Vaccine 00:00:00 [facility] Pneumococcal 2018-07-22 Completed University o f Polysaccharide, 00:00:00 [place] Med ical PPSV23 (PNEUMOVAX) [place] Influenza Virus 2018-07-22 Completed Universit y of Vaccine 00:00:00 [facility] Pneumococcal 2018-07-22 Completed University o f Polysaccharide, 00:00:00 [place] Med ical PPSV23 (PNEUMOVAX) Branch Influenza Virus 2018-07-22 Completed Universit y of Vaccine 00:00:00 [facility] Pneumococcal 2018-07-22 Completed University o f Polysaccharide, 00:00:00 [place] Med ical PPSV23 (PNEUMOVAX) Branch Influenza Virus 2018-07-22 Completed Universit y of Vaccine 00:00:00 [facility] Pneumococcal 2018-07-22 Completed University o f Polysaccharide, 00:00:00 [place] Med ical PPSV23 (PNEUMOVAX) Branch Influenza Virus 2018-07-22 Completed Universit y of Vaccine 00:00:00 [facility] Pneumococcal 2018-07-22 Completed University o f Polysaccharide, 00:00:00 [place] Med ical PPSV23 (PNEUMOVAX) Branch Vital Signs Vital Name Observation Time Observation Value Comments Source Systolic blood 2021-09-07 16:52:00 155 mm[Hg] Univer sity [facility] Diastolic blood 2021-09-07 16:52:00 59 mm[Hg] Unive rsity of [facility] Heart rate 2021-09-07 16:52:00 91 /min [facility] Body temperature 2021-09-07 16:52:00 36.83 Gabrielle [facility] Respiratory rate 2021-09-07 16:52:00 20 /min [facility] Oxygen saturation in 2021-09-07 16:52:00 91 /min [facility] Arterial blood by [facility] Pulse oximetry Branch Body weight 2021-09-07 09:36:00 70.988 kg [facility] BMI 2021-09-07 09:36:00 21.83 kg/m2 [facility] Body height 2021-09-05 08:39:00 180.3 cm [facility] Oxygen saturation in 2021-05-12 17:23:00 95 /min on 2L [facility] of Arterial blood by [facility] Pulse oximetry Branch Systolic blood 2021-05-12 17:22:00 117 mm[Hg] Univer sity of [facility] Diastolic blood 2021-05-12 17:22:00 59 mm[Hg] [facility] Heart rate 2021-05-12 17:22:00 97 /min [facility] Respiratory rate 2021-05-12 17:22:00 22 /min [facility] [place] Body height 2021-05-12 17:22:00 180.3 cm [facility] Body weight 2021-05-12 17:22:00 74.844 kg [facility] BMI 2021-05-12 17:22:00 23.01 kg/m2 [facility] Procedures Procedure Date / Time Performing Clinician Source Performed POCT GLUCOSE (AUTOMATED) 2021-09-07 16:53:00 Juan Devlin [facility] POCT GLUCOSE (AUTOMATED) 2021-09-07 12:35:00 Juan Devlin [facility] BASIC METABOLIC PANEL 2021-09-07 09:46:00 Juan Devlin [facility] (NA, K, CL, CO2, GLUCOSE, Medica l Branch BUN, CREATININE, CA) CBC WITH DIFF 2021-09-07 09:46:00 Juan Devlin [facility] PREPARE PACKED RBC 2021-09-06 22:46:06 Juan Devlin [facility] POCT GLUCOSE (AUTOMATED) 2021-09-06 21:40:00 Juan Devlin [facility] POCT GLUCOSE (AUTOMATED) 2021-09-06 16:48:00 Juan Devlin [facility] POCT GLUCOSE (AUTOMATED) 2021-09-06 13:05:00 Juan Devlin [facility] BASIC METABOLIC PANEL 2021-09-06 11:03:00 Juan Devlin [facility] (NA, K, CL, CO2, GLUCOSE, Medica l Branch BUN, CREATININE, CA) CBC WITH DIFF 2021-09-06 11:03:00 Juan Devlin [facility] VITAMIN B12, LEVEL 2021-09-06 11:02:00 Juan Devlin [facility] FOLATE 2021-09-06 11:02:00 Juan Devlin [facility] POCT GLUCOSE (AUTOMATED) 2021-09-06 01:59:00 Juan Devlin [facility] POCT GLUCOSE (AUTOMATED) 2021-09-05 22:35:00 Juan Devlin [facility] TRANSFUSE PACKED RBC 2021-09-05 17:41:00 Anuradha Rojas [facility] PREPARE PACKED RBC 2021-09-05 17:13:11 Anuradha Rojas [facility] POCT GLUCOSE (AUTOMATED) 2021-09-05 16:40:00 [facility] [place] [facility] 2021-09-05 16:39:34 Juan Devlin [facility] ANGIOGRAM [facility] XR CHEST 1 VW 2021-09-05 09:30:42 Anuradha Rojas [facility] HB ABO GROUPING 2021-09-05 09:26:00 Anuradha Rojas [facility] COVID-19 (ID NOW RAPID 2021-09-05 09:25:00 Anuradha Rojas [facility] TESTING) [facility] ONLY COVID 2021-09-05 09:25:00 Anuradha Rojas [facility] INTERPRETATION [facility] LIPASE 2021-09-05 08:51:00 Anuradha Rojas [facility] TROPONIN I 2021-09-05 08:51:00 Anuradha Rojas [facility] COMP. METABOLIC PANEL 2021-09-05 08:51:00 Anuradha Rojas [facility] ([id number]) [facility] CBC WITH DIFF 2021-09-05 08:51:00 Anuradha Rojas [facility] RETICULOCYTES AUTOMATED 2021-09-05 08:51:00 Juan Devlin [facility] N-TERMINAL PRO-BNP 2021-09-05 08:51:00 Anuradha Rojas [facility] HB ECG ROUTINE & RHYTHM 2021-09-05 08:38:04 Anuradha Rojas [facility] Encounters Start End Encounter Admission Attending Care Care Encounter Source Date/Time Date/Time Type Type Clinicians Facility Department ID 2021-09-09 2021-09-09 Outpatient R ARMOND SPANN [facility] [id number] Univers 09:00:00 09:00:00 ARMOND SPANN [id number] i ty of [facility] 2021-09-09 2021-09-09 Outpatient R ARMOND SPANN [facility] [id number] Univers 09:00:00 09:00:00 ARMOND SPANN i ty of [facility] 2021-09-08 2021-09-08 Transition REBECCA Cheung 1.2.840.114 [id number] Univers 00:00:00 00:00:00 of Care Shonda TOWNSEND 350.1.13.10 [place] [id number] [facility] [address] 2021-09-05 2021-09-07 Inpatient X GABBY WVMARISELA EDENILSON [id number] Univers 03:38:00 13:55:00 JUAN ayala of [facility] 2021-09-05 2021-09-07 [facility] Anuradha Rojas [facility] 1.2.840. 114 [id number] Univers 03:38:00 13:55:00 Encounter Marko Gallegos 350.1.13.10 ity of Juan Devlin 4.2.7.2.686 [facility] [id number] [facility] [address] 2021-08-11 2021-08-11 Telephone Maria Ines WVMARISELA [id number] Univers 00:00:00 00:00:00 Armond LINTON 350.1.13.10 [place] [id number] Nh dical NAL 5 [facility] 2021-06-22 2021-06-22 Telephone Maria Ines [facility] [id number] Univers 00:00:00 00:00:00 Armond LINTON 350.1.13.10 [place] [id number] Nh dical NAL [address] [place] [address] 2021-05-12 2021-05-12 Outpatient R ARMOND SPANN [facility] [id number] Univers 11:00:00 11:45:15 ARMOND SPANN i ty of [facility] 2021-05-12 2021-05-12 Office Maria Ines WVMARISELA 1.2.840.[id number] [facility] 10:49:06 11:19:06 Visit Armond LINTON 350.1.13.10 i ty of [place] 4.2.7.2.686 Tosin VILLAVICENCIO [phone] [address] 2020-07-26 2020-07-26 Orders Doctor ANGIE 1.2.840.114 [id number] 00:00:00 00:00:00 Only Unassigned, VICKI 350.1.13.10 [facility] 4.2.7.2.686 [id number] 009 2020-07-15 2020-07-15 Orders Doctor ADAMS 1.2.840.114 [id number] 00:00:00 00:00:00 Only Unassigned, VICKI 350.1.13.10 [facility] 4.2.7.2.686 [id number] 009 2020-06-24 2020-06-24 Orders Doctor ADAMS 1.2.840.114 [id number] 00:00:00 00:00:00 Only Unassigned, VICKI 350.1.13.10 [facility] 4.2.7.2.686 [id number] 009 2020-06-14 2020-06-14 Orders Doctor ANGIE Remy.2.840.114 [id number] 00:00:00 00:00:00 Only Unassigned, VICKI 350.1.13.10 [facility] 4.2.7.2.686 [id number] 009 2020-05-31 2020-05-31 Orders Doctor ANGIE Abraham2.840.114 [id number] 00:00:00 00:00:00 Only Unassigned, VICKI 350.1.13.10 [facility] 4.2.7.2.686 [id number] 009 2020-05-07 2020-05-07 Office Maria Ines WVMARISELA 1.2.840.114 [id number] 08:33:21 08:53:21 Visit Armond [place] 350.1.13.10 [place] 4.2.7.2.686 ron [id number] nal 085 Building Results Test Description Test Time Test Comments Results Result Comments Source POCT GLUCOSE (AUTOMATED) 2021-09-07 17:23:02 Test Item Value Reference Range Interpretation Comme nts POCT GLU (test code = 1460991541) 93 mg/dL 70-110 Lab Interpretation (test code = 41689-6) Normal [facility], [id number] 15:38:58 Test Item Value Reference Range Interpretation Comments VIT B12 (test code = 575 pg/mL 240-930 1943983818) MOIZ (test code = MOIZ) Biotin has been reported to cause a positive bias, interpret results relative to patient's use of biotin. Lab Interpretation (test Normal code = 90373-6) [facility]2021-09-07 13:32:58 Test Item Value Reference Range Interpretation Comments POCT GLU (test code = 4675552268) 103 mg/dL 70-110 Lab Interpretation (test code = Normal 63753-8) [facility] (NA, K, CL, CO2, GLUCOSE, BUN, CREATININE, CA)2021-09-07 11:25:34 Test Item Value Reference Range Interpretation Comments NA (test code = 136 mmol/L 135-145 0744763319) K (test code = 4.1 mmol/L 3.5-5.0 5141972815) CL (test code = 102 mmol/L 98-108 4009932214) CO2 TOTAL (test code = 32 mmol/L 23-31 H 7588989048) AGAP (test code = 2-16 7724875794) BUN (test code = 21 mg/dL 7-23 2149811450) GLUCOSE (test code = 88 mg/dL 70-110 2360015239) CREATININE (test code = 1.17 mg/dL 0.60-1.25 9896710162) CALCIUM (test code = 8.9 mg/dL 8.6-10.6 3907279919) eGFR (test code = mL/min/1.73m2 0932408414) MOIZ (test code = MOIZ) Association of Glomerular Filtration Rate (GFR) and Staging of Kidney Disease* + --+ --+ ------+| GFR (mL/min/1.73 m2) ?| With Kidney Damage ?| ?Without Kidney Damage+ --------+ --------+ +| ?>90 ?| ?Stage one ?| ? Normal ?+ ---+ ---+ -------+| ?60-89 ?| ?Stage two ?| ? Decreased GFR ? + --+ --+ ------+| ?30-59 ?| ?Stage three ?| ? Stage three ? + --+ --+ ------+| ?15-29 ?| ?Stage four ? | ? Stage four ?+ ---+ ---+ -------+| ?<15 (or dialysis) ? ?| ?Stage five ? | ? Stage five ?+ ---+ ---+ -------+ *Each stage assumes the associated GFR level has been in effect for at least three months. ?Stages 1 to 5, with or without kidney disease, indicate chronic kidney disease. Notes: Determination of stages one and two (with eGFR >59mL/min/1.73 m2) requires estimation of kidney damage for at least three months as defined by structural or functional abnormalities of the kidney, manifested by either:Pathological abnormalities or Markers of kidney damage (including abnormalities in the composition of the blood or urine or abnormalities in imaging tests). Lab Interpretation Abnormal (test code = 29529-1) [facility] WITH [id number] 10:52:45 Test Item Value Reference Range Interpretation Comments WBC (test code = See_Comment [Automated 1300-2) message] The sy stem which generated this result transmitted reference range : 4.20 - 10.70 10*3/?L. The reference range was not used to interpret this result as normal/abnormal . RBC (test code = See_Comment L [Automated 420-8) message] The sy stem which generated this result transmitted reference range : 4.26 - 5.52 10*6/?L. The reference range was not used to interpret this result as normal/abnormal . HGB (test code = 7.4 g/dL 12.2-16.4 L 718-7) HCT (test code = 23.8 % 38.4-49.3 L 4544-3) MCV (test code = 96.7 fL 81.7-95.6 H 787-2) MCH (test code = 30.1 pg 26.1-32.7 785-6) MCHC (test code = 31.1 g/dL 31.2-35.0 L 786-4) RDW-SD (test code = 71.6 fL 38.5-51.6 H 66234-1) RDW-CV (test code = 21.1 % 12.1-15.4 H 788-0) PLT (test code = See_Comment [Automated 777-3) message] The sy stem which generated this result transmitted reference range : 150 - 328 10*3/ ?L. The reference r fredi was not used to interpret this result as normal/abnormal . MPV (test code = 11.6 fL 9.8-13.0 83516-3) NRBC/100 WBC (test See_Comment [Automat ed code = 7983334855) message] The system which generated this result transmitted reference range : 0.0 - 10.0 /100 WBCs. The refer ence range was not u sed to interpret th is result as normal/abnormal . NRBC x10^3 (test code <0.01 See_Comment [Auto mated = 4570137341) message] The s ystem which generated this result transmitted reference range : 10*3/?L. The reference range was not used to interpret this result as normal/abnormal . GRAN MAT (NEUT) % 77.6 % (test code = 770-8) IMM GRAN % (test code 0.50 % = 4172001321) LYMPH % (test code = 12.1 % 736-9) MONO % (test code = 7.9 % 5905-5) EOS % (test code = 1.4 % 713-8) BASO % (test code = 0.5 % 706-2) GRAN MAT x10^3(ANC) 4.88 10*3/uL 1.99-6.95 (test code = 4243293012) IMM GRAN x10^3 (test 0.03 10*3/uL 0.00-0.06 code = 2990745324) LYMPH x10^3 (test code 0.76 10*3/uL 1.09-3.23 L = 731-0) MONO x10^3 (test code 0.50 10*3/uL 0.36-1.02 = 742-7) EOS x10^3 (test code = 0.09 10*3/uL 0.06-0.53 711-2) BASO x10^3 (test code 0.03 10*3/uL 0.01-0.09 = 704-7) Lab Interpretation Abnormal (test code = 29568-2) [facility] (in units), 1 Units 2021-09-06 22:46:06 Test Item Value Reference Range Interpretation Comments Cross Match Result Compatible (test code = 4409) ISBT Blood Type Code (test code = 894209) Unit Blood Type (test O Neg code = 4410) Unit Number (test [id number] code = 4411) Blood Expiration Date & Time (test code = 790847) Status Information Issued (test code = 4412) Product Red Blood Cells Identification (test code = 4413) Product Code (test [id number] Performed at [facility] code = 4414) Laboratory Services - [facility] Blood [address] [place] [address]Ltan Free: [phone] A No. [id number] [facility] GLUCOSE (AUTOMATED)2021-09-06 21:56:24 Test Item Value Reference Range Interpretation Comments POCT GLU (test code = 0870632078) 102 mg/dL 70-110 Lab Interpretation (test code = Normal 54925-0) [facility] GLUCOSE (AUTOMATED)2021-09-06 17:02:30 Test Item Value Reference Range Interpretation Comments POCT GLU (test code = 6131627228) 100 mg/dL 70-110 Lab Interpretation (test code = Normal 32474-1) [facility] 16:53:34 Test Item Value Reference Range Interpretation Comments FOLATE SER (test code = 6.3 ng/mL 3.0-20.0 Biot in has been 1098847297) reported to cau se a positive bias, interpret resul ts relative to patient's use o f biotin. Lab Interpretation (test Normal code = 11973-1) [facility] GLUCOSE (AUTOMATED)2021-09-06 13:10:14 Test Item Value Reference Range Interpretation Comments POCT GLU (test code = 5733116554) 127 mg/dL 70-110 H Lab Interpretation (test code = Abnormal 84949-2) [facility] METABOLIC PANEL (NA, K, CL, CO2, GLUCOSE, BUN, CREATININE, CA)2021-09-06 12:40:02 Test Item Value Reference Range Interpretation Comments NA (test code = 138 mmol/L 135-145 0588730489) K (test code = 4.4 mmol/L 3.5-5.0 2072415176) CL (test code = 104 mmol/L 98-108 4021008875) CO2 TOTAL (test code = 32 mmol/L 23-31 H 4118366654) AGAP (test code = 2-16 3678970939) BUN (test code = 25 mg/dL 7-23 H 9346719471) GLUCOSE (test code = 119 mg/dL 70-110 H 5976132075) CREATININE (test code = 1.41 mg/dL 0.60-1.25 H 5224531385) CALCIUM (test code = 9.0 mg/dL 8.6-10.6 2121856135) eGFR (test code = mL/min/1.73m2 8230192571) MOIZ (test code = MOIZ) Association of Glomerular Filtration Rate (GFR) and Staging of Kidney Disease* + --+ --+ ------+| GFR (mL/min/1.73 m2) ?| With Kidney Damage ?| ?Without Kidney Damage+ --------+ --------+ +| ?>90 ?| ?Stage one ?| ? Normal ?+ ---+ ---+ -------+| ?60-89 ?| ?Stage two ?| ? Decreased GFR ? + --+ --+ ------+| ?30-59 ?| ?Stage three ?| ? Stage three ? + --+ --+ ------+| ?15-29 ?| ?Stage four ? | ? Stage four ?+ ---+ ---+ -------+| ?<15 (or dialysis) ? ?| ?Stage five ? | ? Stage five ?+ ---+ ---+ -------+ *Each stage assumes the associated GFR level has been in effect for at least three months. ?Stages 1 to 5, with or without kidney disease, indicate chronic kidney disease. Notes: Determination of stages one and two (with eGFR >59mL/min/1.73 m2) requires estimation of kidney damage for at least three months as defined by structural or functional abnormalities of the kidney, manifested by either:Pathological abnormalities or Markers of kidney damage (including abnormalities in the composition of the blood or urine or abnormalities in imaging tests). Lab Interpretation Abnormal (test code = 39818-6) [facility] WITH [id number] 12:03:02 Test Item Value Reference Range Interpretation Comments WBC (test code = See_Comment [Automated 6690-2) message] The sy stem which generated this result transmitted reference range : 4.20 - 10.70 10*3/?L. The reference range was not used to interpret this result as normal/abnormal . RBC (test code = See_Comment L [Automated 789-8) message] The sy stem which generated this result transmitted reference range : 4.26 - 5.52 10*6/?L. The reference range was not used to interpret this result as normal/abnormal . HGB (test code = 6.6 g/dL 12.2-16.4 L 718-7) HCT (test code = 21.3 % 38.4-49.3 L 4544-3) MCV (test code = 99.1 fL 81.7-95.6 H 787-2) MCH (test code = 30.7 pg 26.1-32.7 785-6) MCHC (test code = 31.0 g/dL 31.2-35.0 L 786-4) RDW-SD (test code = 73.2 fL 38.5-51.6 H 12366-8) RDW-CV (test code = 21.5 % 12.1-15.4 H 788-0) PLT (test code = See_Comment [Automated 777-3) message] The sy stem which generated this result transmitted reference range : 150 - 328 10*3/ ?L. The reference r fredi was not used to interpret this result as normal/abnormal . MPV (test code = 11.2 fL 9.8-13.0 53467-6) NRBC/100 WBC (test See_Comment [Automat ed code = 5349300074) message] The system which generated this result transmitted reference range : 0.0 - 10.0 /100 WBCs. The refer ence range was not u sed to interpret th is result as normal/abnormal . NRBC x10^3 (test code See_Comment [Auto mated = 7673846207) message] The s ystem which generated this result transmitted reference range : 10*3/?L. The reference range was not used to interpret this result as normal/abnormal . GRAN MAT (NEUT) % 75.0 % (test code = 770-8) IMM GRAN % (test code 0.20 % = 9638886005) LYMPH % (test code = 12.9 % 736-9) MONO % (test code = 11.5 % 5905-5) EOS % (test code = 0.2 % 713-8) BASO % (test code = 0.2 % 706-2) GRAN MAT x10^3(ANC) 4.12 10*3/uL 1.99-6.95 (test code = 9549590351) IMM GRAN x10^3 (test <0.03 0.00-0.06 code = 9407978576) LYMPH x10^3 (test code 0.71 10*3/uL 1.09-3.23 L = 731-0) MONO x10^3 (test code 0.63 10*3/uL 0.36-1.02 = 742-7) EOS x10^3 (test code = <0.03 0.06-0.53 L 711-2) BASO x10^3 (test code <0.03 0.01-0.09 = 704-7) Lab Interpretation Abnormal (test code = 52354-7) [facility] GLUCOSE (AUTOMATED)2021-09-06 03:13:48 Test Item Value Reference Range Interpretation Comments POCT GLU (test code = 3636340567) 130 mg/dL 70-110 H Lab Interpretation (test code = Abnormal 71737-3) [facility] GLUCOSE (AUTOMATED)2021-09-05 22:47:46 Test Item Value Reference Range Interpretation Comments POCT GLU (test code = 0914614023) 178 mg/dL 70-110 H Lab Interpretation (test code = Abnormal 74986-4) [facility] RBC (in units), 1 Units 2021-09-05 17:13:11 Test Item Value Reference Range Interpretation Comments Unit Blood Type (test O Neg code = 4410) ISBT Blood Type Code (test code = 695674) Unit Number (test [id number] code = 4411) Blood Expiration Date & Time (test code = 444058) Status Information Issued (test code = 4412) Product Red Blood Cells Identification (test code = 4413) Product Code (test [id number] Performed at [facility] code = 4414) Laboratory Services - [facility] Blood [address] [place] [id number] Free: [phone] A No. [id number] Cross Match Result Compatible (test code = 4409) [facility]2021-09-05 16:51:03 Test Item Value Reference Range Interpretation Comments POCT GLU (test code = 4886002055) 264 mg/dL 70-110 H Lab Interpretation (test code = Abnormal 07617-0) [facility]UL[facility] [id number] 16:45:00 Test Item Value Reference Range Interpretation Comments RETIC Count Automated 4.35 % 0.59-2.24 H (test code = 4813909450) RETIC Absolute Count See_Comment [Autom ated message] (test code = 6232914208) The system which generated this result transmitted ref erence range: 0.0260 - 0.1170 10*6/?L. The reference range was not used to int erpret this result as normal/abnormal . IRF % (test code = 17.80 % 2.00-19.10 5815496456) RETIC-HE (test code = 24.0 pg 27.3-36.4 L 0028640831) Lab Interpretation (test Abnormal code = 02424-7) [facility] Screen - ONCE [id number] 10:02:24 Test Item Value Reference Range Interpretation Comments ABO & RH (test code B Negative Performe d at [facility] = 20) Laboratory Serv ices - [facility] Blood Bank1 [address] [id number] Free: [phone] A No. [id number] IAT (test code = Negative Performed a t [facility] 1185) Laboratory Serv Formerly [facility] Blood Bank[address] [place] [address]Dyuw Free: [phone] A No. [id number] [facility]berg[facility]rop[facility] [id number] 09:29:18 Test Item Value Reference Interpretation Comments Range TROPONIN I (test 0.006 ng/mL See_Comment [Automated code = 5808229674) message] The system which generated this result transmitted reference range : <=0.034. The reference range was not used to interpret this result as normal/abnormal . MOIZ (test code = Reference (Normal) MOIZ) Range (defined by the 99th percentile reference limit): <= 0.034 ng/mL Note: Cardiac troponin begins to rise 3-4 hours after the onset of ischemia. Repeat in 4-6 hours if the sample was drawn within 3-4 hours of the onset of the symptom and found normal. Diagnosis of myocardial injury is made with acute changes in cTn concentrations with at least one serial sample above the 99th percentile upper reference limit (URL), taken together with the patient's clinical presentation. Biotin has been reported to cause a negative bias, interpret results relative to patient's use of biotin. Lab Interpretation Normal (test code = 07234-9) [facility]MINAL [id number] 09:25:57 Test Item Value Reference Range Interpretation Comments NT-proBNP (test code 1560 pg/mL See_Comment H [Autom ated = 7801893983) message] The system which generated this result transmitted reference range : <=450. The reference range was not used to interpret this result as normal/abnormal . MOIZ (test code = MOIZ) Biotin has been reported to cause a negative bias, interpret results relative to patient's use of biotin. Lab Interpretation Abnormal (test code = 63917-4) [facility]MP2022-03-14 09:17:36 Test Item Value Reference Range Interpretation Comments NA (test code = 140 mmol/L 135-145 2302298848) K (test code = 4.2 mmol/L 3.5-5.0 1966409563) CL (test code = 106 mmol/L 98-108 5954231428) CO2 TOTAL (test code = 28 mmol/L 23-31 9063544102) AGAP (test code = 2-16 4618099340) BUN (test code = 16 mg/dL 7-23 2624590310) GLUCOSE (test code = 147 mg/dL 70-110 H 0737435961) CREATININE (test code = 1.20 mg/dL 0.60-1.25 6478514134) TOTAL BILI (test code = 0.7 mg/dL 0.1-1.9 2261955915) CALCIUM (test code = 9.5 mg/dL 8.6-10.6 2885522297) T PROTEIN (test code = 6.0 g/dL 6.3-8.2 L 0296527254) ALBUMIN (test code = 3.2 g/dL 3.5-5.0 L 2363325175) ALK PHOS (test code = 55 U/L 34-122 0270678782) ALTv (test code = 8 U/L 5-50 1742-6) AST(SGOT) (test code = 17 U/L 13-40 1204538036) eGFR (test code = mL/min/1.73m2 8447423743) MOIZ (test code = MOIZ) Association of Glomerular Filtration Rate (GFR) and Staging of Kidney Disease* + --+ --+ ------+| GFR (mL/min/1.73 m2) ?| With Kidney Damage ?| ?Without Kidney Damage+ --------+ --------+ +| ?>90 ?| ?Stage one ?| ? Normal ?+ ---+ ---+ -------+| ?60-89 ?| ?Stage two ?| ? Decreased GFR ? + --+ --+ ------+| ?30-59 ?| ?Stage three ?| ? Stage three ? + --+ --+ ------+| ?15-29 ?| ?Stage four ? | ? Stage four ?+ ---+ ---+ -------+| ?<15 (or dialysis) ? ?| ?Stage five ? | ? Stage five ?+ ---+ ---+ -------+ *Each stage assumes the associated GFR level has been in effect for at least three months. ?Stages 1 to 5, with or without kidney disease, indicate chronic kidney disease. Notes: Determination of stages one and two (with eGFR >59mL/min/1.73 m2) requires estimation of kidney damage for at least three months as defined by structural or functional abnormalities of the kidney, manifested by either:Pathological abnormalities or Markers of kidney damage (including abnormalities in the composition of the blood or urine or abnormalities in imaging tests). Lab Interpretation Abnormal (test code = 59141-9) [facility]20[facility]-14 09:17:16 Test Item Value Reference Range Interpretation Comments LIPASE (test code = 0317012568) 72 U/L 0-220 Lab Interpretation (test code = Normal 35842-6) [facility]CB with [id number] 09:03:13 Test Item Value Reference Range Interpretation Comments WBC (test code = See_Comment [Automated 6690-2) message] The sy stem which generated this result transmitted reference range : 4.20 - 10.70 10*3/?L. The reference range was not used to interpret this result as normal/abnormal . RBC (test code = See_Comment L [Automated 789-8) message] The sy stem which generated this result transmitted reference range : 4.26 - 5.52 10*6/?L. The reference range was not used to interpret this result as normal/abnormal . HGB (test code = 6.4 g/dL 12.2-16.4 L 718-7) HCT (test code = 21.7 % 38.4-49.3 L 4544-3) MCV (test code = 103.8 fL 81.7-95.6 H 787-2) MCH (test code = 30.6 pg 26.1-32.7 785-6) MCHC (test code = 29.5 g/dL 31.2-35.0 L 786-4) RDW-SD (test code = 73.6 fL 38.5-51.6 H 80947-0) RDW-CV (test code = 20.9 % 12.1-15.4 H 788-0) PLT (test code = See_Comment H [Automated 777-3) message] The sy stem which generated this result transmitted reference range : 150 - 328 10*3/ ?L. The reference r fredi was not used to interpret this result as normal/abnormal . MPV (test code = 10.7 fL 9.8-13.0 90563-5) NRBC/100 WBC (test See_Comment [Automat ed code = 0617142463) message] The system which generated this result transmitted reference range : 0.0 - 10.0 /100 WBCs. The refer ence range was not u sed to interpret th is result as normal/abnormal . NRBC x10^3 (test code <0.01 See_Comment [Auto mated = 7684522005) message] The s ystem which generated this result transmitted reference range : 10*3/?L. The reference range was not used to interpret this result as normal/abnormal . GRAN MAT (NEUT) % 71.8 % (test code = 770-8) IMM GRAN % (test code 0.40 % = 8531071753) LYMPH % (test code = 16.8 % 736-9) MONO % (test code = 7.7 % 5905-5) EOS % (test code = 2.9 % 713-8) BASO % (test code = 0.4 % 706-2) GRAN MAT x10^3(ANC) 5.85 10*3/uL 1.99-6.95 (test code = 5632612647) IMM GRAN x10^3 (test 0.03 10*3/uL 0.00-0.06 code = 0768756791) LYMPH x10^3 (test code 1.37 10*3/uL 1.09-3.23 = 731-0) MONO x10^3 (test code 0.63 10*3/uL 0.36-1.02 = 742-7) EOS x10^3 (test code = 0.24 10*3/uL 0.06-0.53 711-2) BASO x10^3 (test code 0.03 10*3/uL 0.01-0.09 = 704-7) Lab Interpretation Abnormal (test code = 15696-1) [facility]"
[2021-09-20 09:58] LABS: Absolute Lymphocytes (CBC) 0.9 K/uL (0.7-4.9); Lymphocytes % 12.3 % (15.3-44.8); MPV 8.9 fL (7.6-11.3); RBC Red Blood Cell Count 2.17 M/uL (4.33-5.43)
[2021-09-20 10:01] LABS: Hematocrit 20.6 % (39.6-49.0)
--- NOTE | 2021-09-20 10:19 | RAD REPORT ---
EXAM DESCRIPTION: RAD - Chest Single View - 09/20/2021 10:06 am CLINICAL HISTORY: CHEST PAIN COMPARISON: No comparisonsChest Single View dated 12/17/2018; Chest Pa And Lat (2 Views) dated 2015 FINDINGS: Lines: None. Lungs: Right upper lobe lung mass measuring 7.2 cm which is new from prior. Associated reticular opac ities. Pleural: No significant pleural effusions or pneumothorax. Cardiac: The heart size is within normal limits. Bones: No acute fractures. ACDF in the cervical spine . Other: IMPRESSION: Right upper lobe lung mass concerning for neoplasm. Recommend chest CT for further evalu ation.
[2021-09-20 10:23] LABS: Potassium 4.1 mmol/L (3.5-5.1); Troponin High Sensitivity 8.7 pg/mL (<58.9)
--- NOTE | 2021-09-20 11:24 | RAD REPORT ---
EXAM DESCRIPTION: CT - Thorax W/ Con - 09/20/2021 11:06 am CLINICAL HISTORY: Lung mass COMPARISON: No comparisons FINDINGS: Chest Wall: No suspicious thyroid nodules or pathologic lymphadenopathy. Lungs: Right upper lobe cystic and solid mass measuring 8 x 7.4 cm. The mass does extend across the f issure into the right lower lobe as well. Seconds spiculated mass identified in the lingula measuring approximately 3 by 1.9 cm. Pleura: Small right pleural effusion. Mediastinum/teresita: Enlarged AP window lymph node measuring 15 millimeters and left hilar lymph node me asuring 12 millimeters. Pulmonary arteries/Aorta: No filling defect identified. No aortic aneurysm. Heart: No significant pericardial effusion. Normal heart size. Multi-vessel coronary artery disease. Upper abdomen: Too small to characterize and/or benign appearing renal lesions are noted. Bones: No acute abnormality. ACDF in the cervical spine. Bridging osteophytes in the thoracic spine. All CT scans are performed using dose optimization technique as appropriate and may include automated exposure control or mA/KV adjustment according to patient size. IMPRESSION: Right-sided lung mass involving the right upper lobe and right lower lobe concerning for primary bronchogenic carcinoma. Second lesion in the lingula is also concerning for a possible secon d primary bronchogenic carcinoma. Enlarged AP window and left hilar lymph nodes concerning for isabel involvement. Small nonspecific right pleural effusion.
--- NOTE | 2021-09-20 12:23 | ER ---
Nurse's Notes [facility] Name: John Fulton Age: 76 yrs Sex: Male : 1945 Arrival Date: 09/20/2021 Time: 09:20 Bed 7 Private MD: Fidel Lunsford R; Shahla García Diagnosis: Malignant neoplasm of upper lobe, right bronchus or lung;Anemia, unspecified;Chronic kidney disease, stage 2 (mild) Presentation: 09/20 09:20 Chief complaint: [facility] nurse reports they were getting ready for a jl7 blood transfusion and pt reported shortness of breath and CP this just started this morning, Oxygen sat was 85%. Pt's brother reports he's been short of breath and recently prescribed home O2 but unsure how much he uses. 09:20 Coronavirus screen: cough unrelated to allergies, shortness of breath, Client presents jl7 with at least one sign or symptom that may indicate coronavirus-19. Standard/surgical mask placed on the client. Provider contacted for isolation considerations. Ebola Screen: No symptoms or risks identified at this time. Initial Sepsis Screen: Does the patient meet any 2 criteria? No. Patient's initial sepsis screen is negative. Does the patient have a suspected source of infection? No. Patient's initial sepsis screen is negative. Risk Assessment: Do you want to hurt yourself or someone else? Patient reports no desire to harm self or others. Onset of symptoms is unknown. Care prior to arrival: None. 09:20 Method Of Arrival: Wheelchair jl7 09:20 Acuity: LUIS M 2 jl7 Triage Assessment: 09:20 General: Appears in no apparent distress. uncomfortable, Behavior is calm, cooperative, jl7 appropriate for age. Pain: Complains of pain in xiphoid area, mid-sternal area and right breast Quality of pain is described as stabbing, Is intermittent. Neuro: Level of Consciousness is awake, alert, obeys commands, Oriented to person, place, time, situation. Cardiovascular: Patient's skin is warm and dry. Respiratory: Reports shortness of breath at rest cough that is productive, Onset: The symptoms/episode began/occurred at an unknown time. the patient has moderate shortness of breath. Derm: Skin is dry, Skin is normal, Skin temperature is warm. Historical: - Allergies: 09:48 No Known Allergies; jl7 - Home Meds: 09:48 tamsulosin 0.4 mg oral cap [Active]; losartan-hydrochlorothiazide 100-12.5 mg oral tab jl7 [Active]; omeprazole 40 mg Oral cpDR [Active]; amlodipine 10 mg tab [Active]; ferrous gluconate 225 mg (27 mg iron) oral tab [Active]; - PMHx: 09:48 COPD; Hypertension; iron deficiency; jl7 - Immunization history:: Adult Immunizations up to date, Client reports receiving the 2nd dose of the Covid vaccine. - Social history:: Smoking status: Patient/guardian denies using tobacco. Screenin:46 Abuse screen: Denies threats or abuse. Denies injuries from another. Nutritional ww screening: No deficits noted. Tuberculosis screening: No symptoms or risk factors identified. Fall Risk No fall in past 12 months (0 pts). No secondary diagnosis (0 pts). IV access (20 points). Ambulatory Aid- Crutches/Cane/Walker (15 pts). Gait- Weak (10 pts.). Mental Status- Oriented to own ability (0 pts). Total Snyder Fall Scale indicates High Risk Score (45 or more points). Fall prevention measures have been instituted. Side Rails Up X 2 Placed Close to Nursing Station 1:1 Attendant Assigned Frequent Obs/Assessments Occuring Family Present and informed to notify staff if the need to leave the bedside As available patient and family educated on Fall Prevention Program and Strategies. Assessment: 09:51 General: Appears uncomfortable, Behavior is cooperative. Pain: Complains of pain in ww right clavicle, anterior aspect of right upper chest, mid-sternal area and right breast. Neuro: Level of Consciousness is awake, alert, obeys commands, Oriented to person, place, time, situation, Weakness. Cardiovascular: Patient's skin is warm and dry. Rhythm is regular Chest pain is described as diffuse, quality is stabbing, is located in right substernal area intermittent stabbing episodes are intermittent. Respiratory: Airway is patent Respiratory effort is labored, Respiratory pattern is symmetrical. GI: Abdomen is non-distended, Abd is soft and non tender. : No signs and/or symptoms were reported regarding the genitourinary system. Derm: No signs and/or symptoms reported regarding the dermatologic system. Skin is fragile, is thin. 10:50 Reassessment: Patient appears in no apparent distress at this time. Patient and/or ww family updated on plan of care and expected duration. Pain level reassessed. Patient is alert, oriented x 3, equal unlabored respirations, skin warm/dry/pink. transported to CT scan. 11:38 Reassessment: Patient appears in no apparent distress at this time. No changes from ww previously documented assessment. Patient and/or family updated on plan of care and expected duration. Pain level reassessed. Patient is alert, oriented x 3, equal unlabored respirations, skin warm/dry/pink. 12:24 Reassessment: Patient appears in no apparent distress at this time. No changes from ww previously documented assessment. Patient and/or family updated on plan of care and expected duration. Pain level reassessed. Patient is alert, oriented x 3, equal unlabored respirations, skin warm/dry/pink. 13:30 Reassessment: Patient appears in no apparent distress at this time. No changes from ww previously documented assessment. Patient and/or family updated on plan of care and expected duration. Pain level reassessed. Patient is alert, oriented x 3, equal unlabored respirations, skin warm/dry/pink. 15:11 Reassessment: Patient appears in no apparent distress at this time. No changes from ww previously documented assessment. Patient and/or family updated on plan of care and expected duration. Pain level reassessed. Patient is alert, oriented x 3, equal unlabored respirations, skin warm/dry/pink. blood consent explained and signed. 15:20 Reassessment: Packed RBCs started as ordered. 7 Vital Signs: 09:20 BP 117 / 72; Pulse 85; Resp 22; Temp 97.7; Pulse Ox 83% on R/A; 7 09:55 BP 93 / 60; Pulse 78; Resp 15; Pulse Ox 100% on 2 lpm NC; Weight 63.5 kg; Pain 0/10; jl7 10:30 BP 108 / 61; Pulse 73; Resp 13; Pulse Ox 100% on 2 lpm NC; ww 11:00 BP 118 / 59; Pulse 75; Resp 15; Pulse Ox 100% ; jl7 11:38 BP 112 / 62; Pulse 69; Resp 14; Pulse Ox 100% on 2 lpm NC; ww 12:00 BP 115 / 54; Pulse 68; Resp 15; Pulse Ox 100% ; jl7 13:00 BP 110 / 58; Pulse 76; Resp 15; Pulse Ox 100% on 2 lpm NC; jl7 14:00 BP 120 / 57; Pulse 69; Resp 15; Pulse Ox 100% ; jl7 15:12 BP 128 / 54; Pulse 70; Resp 19; Temp 97.8; Pulse Ox 100% 2 lpm ; ww ED Course: 09:20 Patient arrived in ED. as 09:20 Fidel Lunsford MD is Private Physician. as 09:20 Shahla García MD is Private Physician. as 09:20 Arm band placed on right wrist. jl7 09:22 Austen Daniels DO is Attending Physician. ms3 09:22 Radha Ibarra, BEKAH is Primary Nurse. jl7 09:34 Patient has correct armband on for positive identification. Placed in gown. Bed in low mh5 position. Call light in reach. Side rails up X 1. Adult w/ patient. Warm blanket given. court recording monitor on. Pulse ox on. NIBP on. 09:34 EKG done, by ED staff, reviewed by Austen Daniels DO. 5 09:46 Inserted saline lock: 20 gauge in right antecubital area, using aseptic technique. ww Blood collected. 09:47 Triage completed. jl7 10:08 XRAY Chest (1 view) In Process Unspecified. EDMS 11:08 CT Chest W/ Con In Process Unspecified. EDMS 12:21 Juan José Menard MD is Hospitalizing Provider. ms3 15:43 No provider procedures requiring assistance completed. Patient admitted, IV remains in ww place. Administered Medications: No medications were administered Outcome: 12:22 Decision to Hospitalize by Provider. ms3 15:43 Admitted to Med/surg room 210, with oxygen, with chart, Report called to Louise ww 15:43 Condition: stable 15:43 Instructed on the need for admit. 16:26 Patient left the ED. jb4 Signatures: Dispatcher [employer] EDAndreina Renee James RN RN jb4 Porsha Piper [facility] Radha Ibarra, BEKAH RN 7 Austen Daniels DO DO ms3 Melisa Krishnamurthy, RN RN ww Corrections: (The following items were deleted from the chart) 09:53 09:51 Cardiovascular: Patient's skin is warm and dry. Rhythm is regular ww ww
--- NOTE | 2021-09-20 12:24 | EDPHYS ---
Physician Documentation [facility] Name: John Fulton Age: 76 yrs Sex: Male : 1945 Arrival Date: 09/20/2021 Time: 09:20 Bed 7 Private MD: Fidel Lunsford R; Pant Dhodapkar, Anupama ED Physician Austen Daniels HPI: 09/20 09:32 This 76 yrs old Black Male presents to ER via Unassigned with complaints of Shortness ms3 Of Breath, Chest Pain. 09:32 The patient has shortness of breath at rest. Onset: The symptoms/episode began/occurred ms3 "Been going on for a long time". Duration: The symptoms are chronic, are continuous. The patient's shortness of breath has no apparent modifying factors. Associated signs and symptoms: Pertinent positives: chest pain, productive cough. 76-year-old male presents for chest pain or shortness of breath. Patient was at the cancer center for transfusion when he developed chest pain and was sent to the emergency department. Patient denies pain at this time. Patient states his pain is intermittent and sharp. Patient denies alleviating or inciting factors. Patient states his pain is an 8/10 when it occurs. Patient endorses cough. Patient denies fevers or chills.. Historical: - Allergies: 09:48 No Known Allergies; jl7 - Home Meds: 09:48 tamsulosin 0.4 mg oral cap [Active]; losartan-hydrochlorothiazide 100-12.5 mg oral tab jl7 [Active]; omeprazole 40 mg Oral cpDR [Active]; amlodipine 10 mg tab [Active]; ferrous gluconate 225 mg (27 mg iron) oral tab [Active]; - PMHx: 09:48 COPD; Hypertension; iron deficiency; jl7 - Immunization history:: Adult Immunizations up to date, Client reports receiving the 2nd dose of the Covid vaccine. - Social history:: Smoking status: Patient/guardian denies using tobacco. ROS: 09:32 Constitutional: Negative for fever, and chills. Neck: Negative for injury, pain, and ms3 swelling, Abdomen/GI: Negative for abdominal pain, nausea, vomiting, diarrhea, and constipation, MS/Extremity: Negative for injury and deformity, Skin: Negative for injury, rash, and discoloration, Neuro: Negative for headache, weakness, numbness, tingling. Psych: Negative for depression, anxiety, suicide ideation, homicidal ideation, and hallucinations. 09:32 Cardiovascular: Positive for chest pain. 09:32 Respiratory: Positive for shortness of breath. Exam: 09:31 ECG was reviewed by the Attending Physician. ms3 09:32 Constitutional: This is a well developed, well nourished patient who is awake, alert, ms3 and in no acute distress. Head/Face: Normocephalic, atraumatic. Neck: Trachea midline, no cervical lymphadenopathy. Supple, full range of motion without nuchal rigidity, or vertebral point tenderness. No Meningismus. Chest/axilla: Normal chest wall appearance and motion. Nontender with no deformity. Cardiovascular: Regular rate and rhythm with a normal S1 and S2. No gallops, murmurs, or rubs. Normal PMI, no JVD. No pulse deficits. Back: No spinal tenderness. No costovertebral tenderness. Full range of motion. Skin: Warm, dry with normal turgor. Normal color with no rashes, no lesions, and no evidence of cellulitis. MS/ Extremity: Pulses equal, no cyanosis. Neurovascular intact. Full, normal range of motion. Psych: Awake, alert, with orientation to person, place and time. Behavior, mood, and affect are within normal limits. 09:32 Respiratory: mild respiratory distress is noted, Respirations: normal. 09:32 Respiratory: Breath sounds: decreased breath sounds, that are moderate, are located in ms3 both bases. Vital Signs: 09:20 BP 117 / 72; Pulse 85; Resp 22; Temp 97.7; Pulse Ox 83% on R/A; jl7 09:55 BP 93 / 60; Pulse 78; Resp 15; Pulse Ox 100% on 2 lpm NC; Weight 63.5 kg; Pain 0/10; jl7 10:30 BP 108 / 61; Pulse 73; Resp 13; Pulse Ox 100% on 2 lpm NC; ww 11:00 BP 118 / 59; Pulse 75; Resp 15; Pulse Ox 100% ; jl7 11:38 BP 112 / 62; Pulse 69; Resp 14; Pulse Ox 100% on 2 lpm NC; ww 12:00 BP 115 / 54; Pulse 68; Resp 15; Pulse Ox 100% ; jl7 13:00 BP 110 / 58; Pulse 76; Resp 15; Pulse Ox 100% on 2 lpm NC; jl7 14:00 BP 120 / 57; Pulse 69; Resp 15; Pulse Ox 100% ; jl7 15:12 BP 128 / 54; Pulse 70; Resp 19; Temp 97.8; Pulse Ox 100% 2 lpm ; ww MDM: 09:31 Patient medically screened. ms3 09:37 Differential diagnosis: Anemia Chronic Obstructive Pulmonary Disease pneumonia, ms3 pulmonary edema. 14:30 Data reviewed: vital signs, nurses notes, lab test result(s), radiologic studies. Data ms3 interpreted: Pulse oximetry: on room air is 83 %. Interpretation: hypoxia. Plan: O2 by NC applied. Counseling: I had a detailed discussion with the patient and/or guardian regarding: the historical points, exam findings, and any diagnostic results supporting the discharge/admit diagnosis, lab results, radiology results, the need for further work-up and treatment in the hospital. ED course: Discussed likely lung carcinoma with patient and his brother. they understand/ agree with plan All questions answered. Patient remained in stable condition while in the ED.. 09/20 09:32 Order name: Basic Metabolic Panel; Complete Time: 10:36 ms3 09/20 09:32 Order name: CBC with Diff ms3 09/20 09:32 Order name: Troponin HS; Complete Time: 10:36 ms3 09/20 09:32 Order name: Type And Screen ms3 09/20 09:44 Order name: COVID-19 SARS RT PCR (Document "Date of Onset" if Symptomatic); Complete ms3 Time: 12:16 09/20 10:04 Order name: Manual Differential EDMS 09/20 10:43 Order name: Packed RBC Leukored EDMS 09/20 13:08 Order name: CBC with Automated Diff EDMS 09/20 13:08 Order name: CBC with Automated Diff EDMS 09/20 13:08 Order name: Comprehensive Metabolic Panel EDMS 09/20 13:08 Order name: Comprehensive Metabolic Panel EDMS 09/20 09:32 Order name: XRAY Chest (1 view); Complete Time: 10:23 ms3 09/20 09:32 Order name: EKG; Complete Time: 09:33 ms3 09/20 09:32 Order name: Cardiac monitoring; Complete Time: 09:33 ms3 09/20 09:32 Order name: EKG - Nurse/Tech; Complete Time: 09:33 ms3 09/20 09:32 Order name: IV Saline Lock; Complete Time: 09:43 ms3 09/20 10:37 Order name: CT Chest W/ Con; Complete Time: 11:33 ms3 09/20 13:06 Order name: CONS Physician Consult EDGA 09/20 13:08 Order name: Physical Therapy Consult EDGA 09/20 13:08 Order name: Heart Healthy EDGA 09/20 13:08 Order name: Magnesium EDGA 09/20 13:08 Order name: Magnesium EDMS 09/20 13:08 Order name: Troponin High Sensitivity EDGA 09/20 13:08 Order name: Troponin High Sensitivity EDGA 09/20 13:08 Order name: Troponin High Sensitivity EDGA 09/20 13:58 Order name: Bb Add On bd 09/20 15:34 Order name: Diet Heart Healthy; Complete Time: 15:34 jl7 09/20 09:32 Order name: Labs collected and sent; Complete Time: 09:43 ms3 09/20 09:32 Order name: O2 Per Protocol; Complete Time: 09:43 ms3 09/20 09:32 Order name: O2 Sat Monitoring; Complete Time: 09:43 ms3 EC:31 Rate is 86 beats/min. Rhythm is regular. QRS [place] is Normal. Clinical impression: NSR ms3 w/ Non-specific ST/T Changes. Interpreted by me. Administered Medications: No medications were administered Disposition: 12:22 Critical Care:. ms3 Disposition Summary: 09/20/21 12:22 Hospitalization Ordered Hospitalization Status: Observation ms3 Provider: Juan José Menard ms3 Location: Telemetry/MedSur (observation) ms3 Condition: Stable ms3 Problem: new ms3 Symptoms: are unchanged ms3 Bed/Room Type: Standard ms3 Room Assignment: 210(09/20/21 14:58) dw Diagnosis - Malignant neoplasm of upper lobe, right bronchus or lung ms3 - Anemia, unspecified ms3 - Chronic kidney disease, stage 2 (mild) ms3 Forms: - Medication Reconciliation Form ms3 - SBAR form ms3 Critical care time excluding procedures: 12:22 Critical care time: Bedside Care: 30 minutes, Consultation: 5 minutes, Family ms3 Intervention: 5 minutes. Total time: 40 minutes Signatures: Dispatcher [employer] EDAimee Cabrera, RN RN dw Radha Ibarra RN RN jl7 Austen Daniels DO DO ms3 Corrections: (The following items were deleted from the chart) 10:46 10:38 PACKED RBC LEUKORED -1+BB.LAB.BRZ ordered. EDMS EDMS 10:46 10:43 ABO/RH typing ordered. EDMS EDMS 10:46 10:43 Antibody Screen ordered. EDMS EDMS 14:58 12:22 ms3 dw
[2021-09-20 12:58] LABS: Anisocytosis 1+; Blood Morphology Comment NOTED (NOT SEEN); Hypochromasia 1+; Platelet Estimate ADEQ; Poikilocytosis 1+
[2021-09-20] MEDS ORDERED: ONDANSETRON 4 MG/2 ML VIAL IV PRN (13:04)
[2021-09-20] MEDS ORDERED: ALBUTEROL 2.5 MG/3 ML NEB SOL NEB PRN (13:04)
--- NOTE | 2021-09-20 13:10 | P.HP ---
Certification for Inpatient Patient admitted to: Observation With expected LOS: <2 Midnights Practitioner: I am a practitioner with admitting privileges, knowledge of patient current condition, hospital course, and medical plan of care. Services: Services provided to patient in accordance with Admission requirements found in Title 42 Section 412.3 of the Code of Federal Regulations Patient History Date of Service: 09/20/21 Reason for admission: hypoxia, new lung mass History of Present Illness: 76yo M, PMH: chronic anemia requiring multiple transfusions, iron deficiency, [place] PD on home O2 at night, remote gastric ulcer bleed. Sent to ED from hematology office where patient was to receive blood transfusion. He was noted to have chest pain and hypoxia on room air. Patient s tates he has been more short of breath, with occasional chest discomfort over the last few weeks. Hospitalized in [place] ~2 weeks ago and reportedly treated for pneumonia and COPD exacerbation. He was discharged and set up with home O2. He denies any blood in urine/stool, but does state he has intermittent dark stools over the past years - depending on what he eats. In the ED, patient was noted to have Hgb < 7, hypoxic on room air, generalized weakness, and CT revealed 2 areas of right lung concerning for cancer. Reports being told of a "spot" on his lung that was likely from asbestos exposure. ED Physician requested admission for blood transfusion and further evaluation. Allergies No Known Allergies Allergy (Verified 08/10/21 08:43) Home Medications: Albuterol Sulfate [Ventolin Hfa] 1 mg .ROUTE PRN 03/27/18 Esomeprazole Mag Trihydrate [Nexium] 40 mg PO DAILY 03/27/18 Tamsulosin HCl 1 mg PO DAILY 03/27/18 Metformin ER [Glucophage ER*] 1 tab PO DAILY 07/18/18 Amlodipine [Norvasc] 10 mg PO DAILY 08/30/18 Budesonide/Formoterol Fumarate [Symbicort 160-4.5 Mcg Inhaler] 2 inh IH BID 08/30/18 Doxycycline Hyclate 100 mg PO BID 08/30/18 - Past Medical/Surgical History -: HTN -: iron deficiency -: chronic anemia -: COPD -: remote gastric ulcer bleed -: "neck and back surgery" with rods - Family History Family History: Reviewed- Non-Contributory (patient is unsure of family history) - Social History Smoking Status: Former smoker (>50pk/yr, quit ~7-8 yrs ago) Alcohol use: No Place of Residence: Home Review of Systems 10-point ROS is otherwise unremarkable Physical Examination - Physical Exam General: Alert, Mild distress HEENT: Mucous membr. moist/pink, Sclerae nonicteric Neck: Supple, No LAD Respiratory: Diminished Cardiovascular: No edema, Regular rate/rhythm Gastrointestinal: Soft and benign, Non-distended, Tenderness (mild, diffuse) Musculoskeletal: No contractures, No tenderness Integumentary: No rashes, No significant lesion Neurological: Normal speech, Normal strength at 5/5 x4 extr, Normal affect - Studies Laboratory Data (last 24 hrs) 09/20/21 09:39: WBC 7.3, Hgb 6.8 L*, Hct 20.6 L*, Plt Count 312 09/20/21 09:39: Sodium 141, Potassium 4.1, BUN 18, Creatinine 1.31 H, Glucose 128 H Assessment and Plan - Advance Directives Does patient have a Living Will: No Does patient have a Durable POA for Healthcare: No Physician Review Additional Text: Problem List R upper and lower lobe lung mass, concerning for cancer acute on chronic anemia Chronic COPD, on home O2 HTN received blood transfusions regularly at cancer center 2u PRBC ordered in ED denies h/o cancer reports told of "spot on lung" from asbestos in the past dc'd from [facility] ~2 weeks ago- seems he was treated for COPD/possible pneumonia set up with home O2 ~1 week ago suspect anemia, COPD exacerbation, and lung mass are contributing to his shortness of breath and hypoxia consulted pulmonology discussed with radiology - superior lesion would be amenable to biopsy tomorrow nebs, O2 PT consulted NPO after midnight VTE: SCDs Code: full Dispo: home, ~1-2 days Time Spent Managing Pts Care (In Minutes): 70
[2021-09-20] MEDS: IPRATROPIUM BROM 0.5MG/2.5ML NEB SCH ×2 (14:00→19:35)
[2021-09-20] MEDS ORDERED: NA CHLORIDE 0.9% 250 ML ONE (15:09)
[2021-09-20 18:45] VITALS: BMI 20.7
[2021-09-20 19:48] LABS: Hematocrit 20.7 % (39.6-49.0)
[2021-09-21] MEDS: IPRATROPIUM BROM 0.5MG/2.5ML NEB SCH ×3 (01:20→14:03)
[2021-09-21 03:08] LABS: Absolute Lymphocytes (CBC) 0.8 K/uL (0.7-4.9); Hematocrit 21.8 % (39.6-49.0); Lymphocytes % 12.4 % (15.3-44.8); MPV 8.2 fL (7.6-11.3); RBC Red Blood Cell Count 2.36 M/uL (4.33-5.43)
[2021-09-21 03:09] LABS: Protime INR 1.17
[2021-09-21 03:27] LABS: ALT/SGPT < 10 U/L (12-78); AST/SGOT 7 U/L (15-37); Albumin 2.6 g/dL (3.4-5.0); Alkaline Phosphatase 51 U/L (45-117); BUN Blood Urea Nitrogen 20 mg/dL (7-18); Bicarbonate 35 mmol/L (21-32); Bilirubin Total 0.6 mg/dL (0.2-1.0); Glucose Level 96 mg/dL (74-106); Potassium 4.2 mmol/L (3.5-5.1); Protein, Total 5.5 g/dL (6.4-8.2); Sodium Level 142 mmol/L (136-145)
[2021-09-21 03:28] LABS: Magnesium 1.4 mg/dL (1.8-2.4)
[2021-09-21] MEDS ORDERED: Magnesium Sulfate 2gm IVPB 2 G/50 ML BAG IV ONE (04:09)
--- NOTE | 2021-09-21 06:32 | P.PN ---
Date of Service: 09/21/21
[2021-09-21] MEDS ORDERED: SODIUM CHLORIDE 0.9% 10ML INJ IV PRN (06:33)
--- NOTE | 2021-09-21 07:55 | EKG ---
Test Date: 2021-09-20 Test Time: 09:31:11 [place]: [facility] MEASUREMENT RESULTS: Intervals: Rate: 86 PA: 150 QRSD: 136 QT: 378 QTc: 452 [place]: P: 79 PA: 150 QRS: 16 T: 89 INTERPRETIVE STATEMENTS: Normal sinus rhythm Nonspecific intraventricular block Nonspecific T wave abnormality Abnormal ECG Compared to ECG 12/17/2018 13:39:19 T-wave abnormality now present Intraventricular conduction delay no longer present Electronically Signed On 09-21-21 07:52:41 CDT by Higinio Newsome
--- NOTE | 2021-09-21 08:40 | P.CNS ---
Date of Consult: 09/21/21 Reason for Consult: Right upper lobe lung mass severe anemia Chief Complaint: hypoxia, new lung mass History of Present Illness: Patient is 76 years of patient is 76 years of age poor historian history of chronic anemia multiple transfusions admitted with chest pain hypoxemia was found to have a large right upper lobe mass has had hemoptysis for quite some time quit smoking a long time ago Seen by oncology seen by oncology he has had presumably GI blood loss Allergies No Known Allergies Allergy (Verified 08/10/21 08:43) Home Medications: Tamsulosin HCl 1 mg PO DAILY 03/27/18 Amlodipine [Norvasc] 10 mg PO DAILY 08/30/18 Ferrous Gluconate [Fergon] 1 tab PO DAILY 09/20/21 Losartan/Hydrochlorothiazide [Losartan-Hctz 100-12.5 mg Tab] 1 tab PO DAILY 09/20/21 Omeprazole [Prilosec] 1 cap PO DAILY 09/20/21 - Past Medical/Surgical History Diabetic: Yes -: HTN -: iron deficiency -: chronic anemia -: COPD -: remote gastric ulcer bleed -: DM -: "neck and back surgery" with rods - Social History Alcohol use: No Caffeine use: Yes Place of Residence: Home Review of Systems General: Weakness, Other (Weight loss) Respiratory: Shortness of Breath Neurological: Weakness Physical Examination Temp Pulse Resp BP Pulse Ox 97.5 F 74 16 125/60 98 09/21/21 04:00 09/21/21 04:00 09/21/21 04:00 09/21/21 04:00 09/21/21 04:00 General: Alert, Oriented x3, Cooperative Neck: Supple Respiratory: Clear to auscultation bilaterally, Diminished Cardiovascular: No edema, Regular rate/rhythm Gastrointestinal: Normal bowel sounds, Soft and benign Laboratory Data (last 24 hrs) 09/20/21 09:39: WBC 7.3, Hgb 6.8 L*, Hct 20.6 L*, Plt Count 312 09/20/21 09:39: Sodium 141, Potassium 4.1, BUN 18, Creatinine 1.31 H, Glucose 128 H - Problems (1) Lung cancer Current Visit: Yes Status: Acute Plan: Patient patient is 76 years of age history of chronic anemia multiple blood transfusions no apparent reason for some blood loss mated with anemia and a large right upper lobe lung mass weight loss hemoptysis is scheduled to have/biopsy of the right upper lobe lung mass oxygenation satisfactory oxygenation satisfactory add some prednisone discharge after the biopsy Qualifiers: Laterality: right
[2021-09-21] MEDS ORDERED: PANTOPRAZOLE 40 MG INJ IVP SCH (09:00)
[2021-09-21] MEDS ORDERED: predniSONE 20 MG TAB PO SCH (09:00)
[2021-09-21 09:32] VITALS: O2SAT 90
[2021-09-21 10:14] LABS: Hematocrit 22.8 % (39.6-49.0)
[2021-09-21] MEDS ORDERED: FENTANYL CITR 100 MCG/2 ML ONE (11:07)
[2021-09-21] MEDS ORDERED: METOPROLOL TARTRATE 5 MG/5 ML INJ IV ONE (11:07)
[2021-09-21] MEDS ORDERED: MIDAZOLAM HCL 2 MG/2 ML INJ ONE (11:07)
[2021-09-21] MEDS ORDERED: FLUMAZENIL 0.1 MG/ML (5 mL VIAL) IV ONE (11:08)
[2021-09-21] MEDS ORDERED: HYDRALAZINE HCL 20 MG/ML VIAL ONE (11:08)
[2021-09-21] MEDS ORDERED: NA CHLORIDE 0.9% 500 ML ONE (11:08)
[2021-09-21] MEDS ORDERED: ATROPINE SULF 1 MG/10 ML SYR IV ONE (11:08)
--- NOTE | 2021-09-21 12:28 | RAD REPORT ---
EXAM DESCRIPTION: CT - Lung Biopsy Perc w/CT - 09/21/2021 12:20 pm CLINICAL HISTORY: new lung mass COMPARISON: No comparisons FINDINGS: Preoperative diagnosis: Right upper lobe mass Post operative diagnosis: Same Conscious Sedation: Conscious sedation was provided. 30 minutes of [id number] time. 2 milligrams of Versed and 50 micrograms of fentanyl. Patient was continuously monitored by nursing staff. Contrast used: NONE Estimated blood loss: less than 5 mL Specimens: 3 x 18 gauge core samples. 20 cc of thick reddish fluid aspirated. The patient was placed prone on the table and the right posterior chest wall area was prepped and ayan ped in the usual sterile fashion. 1% lidocaine was infiltrated into the subcutaneous tissues for loca l anesthesia. Under computed tomographic guidance, a gauge introducer was advanced into the lesion. Subsequently, a 18 gauge, 10 cm long, 20 mm throw core biopsy gun was advanced into the lesion and 3 cores were obtained. An aspirate was also obtained of the fluid containing section. Postprocedure imaging demonstrated no complications. Samples were given to pathology for analysis. Th e patient tolerated the procedure without immediate complication and transferred to the recovery room in stable condition. IMPRESSION: Technically successful CT-guided core biopsy and aspiration of a suspicious right upper lobe mass. All CT scans are performed using dose optimization technique as appropriate and may include automated exposure control or mA/KV adjustment according to patient size.
[2021-09-21 13:22] VITALS: BP 109/57; TEMP 96.4
--- NOTE | 2021-09-21 13:41 | RAD REPORT ---
EXAM DESCRIPTION: RAD - Chest Single View - 09/21/2021 1:32 pm CLINICAL HISTORY: Lung biopsy . IMPRESSION: A right pneumothorax is not visualized
--- NOTE | 2021-09-21 19:50 | P.DS ---
Admission Date: 09/20/21 Discharge Date: 09/21/21 Disposition: ROUTINE DISCHARGE Discharge Condition: GOOD Reason for Admission: hypoxia, new lung mass Consultations: Pulmonology - Dr. Muñoz Procedures: Problem List Rupper and lower lobe lung mass, concerning for cancer acute on chronic anemia; requires frequent transfusions Chronic COPD, on home O2 HTN Brief History of Present Illness: 76yo M, PMH: chronic anemia requiring multiple transfusions, iron deficiency, COPD on home O2 at night, remote gastric ulcer bleed. Sent to ED from hematology office where patient was to receive blood transfusion. He was noted to have chest pain and hypoxia on room air. Patient states he has been more short of breath, with occasional chest discomfort over the last few weeks. Hospitalized in [place] ~2 weeks ago and reportedly treated for pneumonia and COPD exacerbation. He was discharged and set up with home O2. He denies any blood in urine/stool, but does state he has intermittent dark stools over the past years - depending on what he eats. In the ED, patient was noted to have Hgb < 7, hypoxic on room air, generalized weakness, and CT revealed 2 areas of right lung concerning for cancer. Reports being told of a "spot" on his lung that was likely from asbestos exposure. ED Physician requested admission for blood transfusion and further evaluation. Hospital Course: Patient was found to have new right upper and lower lobe masses with COPD exacerbation. Breathing improved with steroids and oxygen supplementation. Pulmonology was consulted and recommended CT guided biopsy, which patient underwent without complication. Post procedure chest x-ray did not reveal a pneumothorax. He received 2 units PRBC transfusion. His hemoglobin improved and remained stable in mid 7s He was feeling much better and deemed stable for discharge home. Follow up with Dr. Turpin next week. Vital Signs/Physical Exam: Temp Pulse Resp BP Pulse Ox 96.4 F L 74 12 109/57 L 86 L 09/21/21 12:00 09/21/21 12:00 09/21/21 12:00 09/21/21 12:09/21/21 12:00 Physical Exam General: Alert, oriented, NAD HEENT: Mucous membr. moist/pink, Sclerae nonicteric Respiratory: mild wheeze, non-labored on 2L NC Cardiovascular: No edema, Regular rate/rhythm Gastrointestinal: Soft and benign, Non-distended, Neurological: Normal speech, Normal strength at 5/5 x4 extr, Normal affect Laboratory Data at Discharge: WBC 6.4 K/uL (4.3-10.9) 09/21/21 02:41 Hgb 7.5 g/dL (13.6-17.9) L 09/21/21 09:54 Hct 22.8 % (39.6-49.0) L 09/21/21 09:54 Plt Count 216 K/uL (152-406) D 09/21/21 02:41 PT 12.9 SECONDS (9.5-12.5) H 09/21/21 02:41 INR 1.17 09/21/21 02:41 APTT 28.2 SECONDS (24.3-36.9) 09/21/21 02:41 Sodium 142 mmol/L (136-145) 09/21/21 02:41 Potassium 4.2 mmol/L (3.5-5.1) 09/21/21 02:41 BUN 20 mg/dL (7-18) H 09/21/21 02:41 Creatinine 0.98 mg/dL (0.55-1.3) 09/21/21 02:41 Glucose 96 mg/dL (74-106) 09/21/21 02:41 Magnesium 1.8 mg/dL (1.8-2.4) 09/21/21 12:23 Total Bilirubin 0.6 mg/dL (0.2-1.0) 09/21/21 02:41 AST 7 U/L (15-37) L 09/21/21 02:41 ALT < 10 U/L (12-78) L 09/21/21 02:41 Alkaline Phosphatase 51 U/L (45-117) 09/21/21 02:41 Home Medications: Tamsulosin HCl 1 mg PO DAILY 03/27/18 Ferrous Gluconate [Fergon] 1 tab PO DAILY 09/20/21 Losartan/Hydrochlorothiazide [Losartan-Hctz 100-12.5 mg Tab] 1 tab PO DAILY 09/20/21 Omeprazole [Prilosec] 1 cap PO DAILY 09/20/21 predniSONE [Prednisone*] 20 mg PO SEECOM 8 Days #12 tab 09/21/21 New Medications: predniSONE [Prednisone*] 20 mg PO SEECOM 8 Days #12 tab Physician Discharge Instructions: Patient was found to have new right upper and lower lobe masses with COPD exacerbation. Breathing improved with steroids and oxygen supplementation. Pulmonology was consulted and recommended CT guided biopsy, which patient underwent without complication. Post procedure chest x-ray did not reveal a pneumothorax. He received 2 units PRBC transfusion. His hemoglobin improved and remained stable in mid 7s He was feeling much better and deemed stable for discharge home. Follow up with Dr. Turpin next week. Diet: AHA Activity: Ad lesly Followup: Fidel Lunsford MD [Primary Care Provider] - Shahla García MD [ACTIVE - CAN ADMIT] - Time spent managing pt's care (in minutes): 45
[2021-09-21] MEDS ORDERED: MAGNESIUM SULFATE 1 gm IVPB 1 GM/100 ML BAG IV ONE (21:00)
== END 2021-09-21 15:53 | disposition home health service (06) ==
LOC: ER 09:19 → ERHOLD 13:16 → 2ND 15:55
PROVIDERS: ADMIT Hospitalist; ATTEND Hospitalist
PROC: 30233N1 Transfusion of Nonautologous Red Blood Cells into Peripheral Vein, Percutaneous Approach (ICD-10-PCS; principal; 2021-09-20)
PROC: 0BDC4ZX Extraction of Right Upper Lung Lobe, Percutaneous Endoscopic Approach, Diagnostic (ICD-10-PCS; 2021-09-20)
DX: C34.91 Malignant neoplasm of unspecified part of right bronchus or lung (principal); D64.9 Anemia, unspecified; J44.1 Chronic obstructive pulmonary disease with (acute) exacerbation; E61.1 Iron deficiency; I10 Essential (primary) hypertension; E11.9 Type 2 diabetes mellitus without complications; Z99.81 Dependence on supplemental oxygen; Z87.11 Personal history of peptic ulcer disease; Z87.891 Personal history of nicotine dependence; Z20.822 Contact with and (suspected) exposure to COVID-19; Z79.899 Other long term (current) drug therapy
CPT/HCPCS: 36430; 32408; 93005; 87070; 85025 ×3; 80048; 36415 ×2; 86900; 88108; 83735 ×2; 86850; 85610; 86901; 88305 ×2; 85730; 85018 ×2; 85014 ×2; 84484 ×3; 87015; 87206; 80053; 87116; 87102; 77012; 71260; 71045 ×2; 97116; 97161; 94640; 94760 ×5; 99285; U0003; Q9967; J7512; C9113; J2250; J3010; J3475; Q5106 ×2; G0378 ×2; P9016 ×2; J7050; J7040; J0360

== ENCOUNTER 2021-10-04 09:29 | Day surgery (SDC) | payer OTHER ==
--- OUTSIDE RECORDS SUMMARY | 2021-10-04 09:34 | XMS REPORT | Continuity of Care Document ---
:1945 Author Organization [facility] t Address [address] [place] [address] Care Team Providers Name Role Phone ERWINBOBJELANI [...] Expiration Date Marivel vega MEDICARE PART A [id number] 2003 \\T\\ B 00:00:00 JAYSON [id number] 2018 00:00:00 Problems Condition Condition Condition Status [...] kidney 4-18 ity of injury) injury) 00:00: [place] [address] Medical Branch COPD COPD Disease Active 2020-0 Univers exacerbati exacerbati 4-18 it y of on on 00:00: [place] [address] Medical Branch Aortic Aortic Disease Active 2020-0 Univers stenosis, stenosis, 4-18 ity of mild mild 00:00: [place] 00 [facility] HUYNH HUYNH Disease Active Univers (dyspnea (dyspnea 4-16 ity of on on 00:00: [place] exertion) exertion) [facility] Elevated Elevated Disease Active Unive rs brain brain 4-16 ity of natriureti nat[place]ureti [place] c peptide c peptide [facility] (BNP) (BNP) [place] level level Symptomati Symptomati Disease Active U nivers c anemia c anemia 2-28 ity of 00:00: [place] 00 [facility] Allergies, Adverse Reactions, Alerts Allergy Allergy Status Severity Reaction(s) Onset Inactive Treating Comm ents Source Name Type Date Date Clinician NO KNOWN Drug Active [facility] ALLERGIE Class ity of S [facility] Social History Social Habit Start Date Stop Date Quantity Comments Source Exposure to Not sure [facility] SARS-CoV-2 (event) [facility] Alcohol intake 2021-09-07 2021-09-07 Current [place] of 00:00:00 00:00:00 non-drinker of [facility] alcohol Branch (finding) Education 2021-09-05 2021-09-05 12 University of 00:00:00 00:00:00 [facility] Cigarettes smoked 2018-08-22 2018-08-22 Univers ity of current (pack per 00:00:00 00:00:00 ) - Reported Branch Cigarette 2018-08-22 2018-08-22 University of pack-years 00:00:00 00:00:00 [facility] Tobacco use and 2018-08-22 2018-08-22 Never used Universit y of exposure 00:00:00 00:00:00 [facility] History of tobacco 1999-06-25 Cigarette Smoker University of use 00:00:00 [facility] Sex [birth year] Universit y of 00:00:00 00:00:00 [facility] Smoking Status Start Date Stop Date Source Former smoker 2018-08-22 00:00:00 2018-08-22 00:00:00 Universi ty of [facility] Medications Ordered Filled Start Stop Current Ordering [...] by mouth ity of tablet 14:00: daily. [place] 52 Indication Medical s: dose Branch decreased by Dr. Lunsford 06/15/20 due to low BP. metFORMIN Yes 500mg Take 500 Uni vers 500 mg 3-16 mg by ity of tablet 14:00: mouth [place] 52 daily. Medical Indication Branch s: Dr. Lunsford, PCP, ordered for DM amLODIPine Yes 5mg Take 5 mg Un ezequiel 10 mg 3-16 by mouth ity of tablet 14:00: daily. [place] [address] Indication Medical s: dose Branch decreased by Dr. Lunsford 06/15/20 due to low BP. famotidine 2021- No 20mg 20 mg, Univ ers (PEPCID AC) 3-16 -16 Oral, ity of tablet 20 09:15: 09:46 ONCE, 1 [place] mg [place] :00 dose, On Medical Wed Branch 09/07/21 at 0415, Routine levoFLOXaci 2021-0 2021- Yes [id number] 750mg Take 1 Univers n 750 mg -16 -21 tablet by ity o f tablet 00:00: 04:59 mouth [place] 00 :00 every 24 Medical (twenty-fo Branch ur) hours for 4 days. levoFLOXaci 2021-0 2021- Yes [id number] 750mg Take 1 Univers n 750 mg [...] First dose Medic al mg(2.5 mg on [facility] base)/3 mL 09/05/21 at nebulizer 1200, solution 3 Until mL Discontinu ed, Routine iopamidol 0 2021- No [id number] 100mL 100 mL, Univers (ISOVUE 14 03-14 Intravenou ity o f 370-500 mL) 16:30: 16:45 s, ONCE, 1 [place] injection 00 :00 dose, On Medica l 100 mL [facility] 09/05/21 at 1145, Routine glucagon 2021-0 Yes 1mg 1 mg, Univers (GLUCAGEN 14 Intramuscu ity of DIAGNOSTIC 15:17: lar, PRN, [place] KIT) 57 Starting Medical injection 1 on [facility] mg 09/05/21 at 1017, Until Discontinu ed, BENJAMIN, Blood Glucose < or = 70 mg/dL and patient is unable to swallow or has mental changes. dextrose 50 2021-0 Yes 25mL 25 mL, Univ ers % in water 09-05 Slow IV ity of (D50W) 15:17: Push, PRN, [place] injection 57 Starting Medica l 25 mL on [facility] 09/05/21 at 1017, Until Discontinu ed, BENJAMIN, Blood Glucose < or = 70 mg/dL and patient is unable to swallow or has mental status changes. tamsulosin 0 Yes .4mg 0.4 mg, Univ ers (FLOMAX) 3-14 Oral, ity of capsule 0.4 14:00: DAILY, [place] mg 00 First dose Medical on [facility] 09/05/21 at 0900, Until Discontinu ed, Routine furosemide 2021-0 Yes 40mg 40 mg, Unive rs (LASIX) 3-14 Oral, ity of tablet 40 14:00: DAILY, [place] mg 00 First dose Medical on [facility] 09/05/21 at 0900, Until Discontinu ed, Routine amLODIPine 2021-0 Yes 5mg 5 mg, Univer s (NORVASC) 3-14 Oral, ity of tablet 5 mg 14:00: DAILY, [place] 00 First dose Medical on [facility] 09/05/21 at 0900, Until Discontinu ed, Routine allopurinoL 2022-0 Yes 100mg 100 mg, Un ezequiel (ZYLOPRIM) 3-14 Oral, ity of tablet 100 14:00: DAILY, [place] mg 00 First dose Medical on [place] 09/05/21 at 0900, Until Discontinu ed, Routine ondansetron Yes 4mg 4 mg, Slow Univers (ZOFRAN 3-14 IV Push, ity of (PF)) 12:18: Q6HPRN, [place] injection 4 10 Starting Medi jessica mg on [place] Branch 09/05/21 at 0718, Until Discontinu ed, Routine, Nausea and Vomiting (N/V) acetaminoph Yes 650mg 650 mg, Un ezequiel en 3-14 Oral, ity of (TYLENOL) 12:18: Q6HPRN, [place] tablet 650 00 Starting Medic al mg [...] by mouth ity of tablet 11:24: daily. [place] [address] Indication Medical s: dose Branch decreased by [...] by mouth ity of tablet 11:24: daily. [place] [address] Indication Medical s: dose Branch decreased by [...] by mouth ity of tablet 11:24: daily. [place] [address] Indication Medical s: dose Branch decreased by [...] 06/15/20 due to low BP. tiotropium Yes [id number] 18ug Inhale 1 Univers 18 mcg 4-09 capsule ity of inhalation 00:00: daily. [place] [facility] Branch tiotropium Yes [id number] 18ug Inhale 1 Univers 18 mcg 4-09 capsule ity of inhalation 00:00: daily. [address] tiotropium Yes [id number] 18ug Inhale 1 Univers 18 mcg 4-09 capsule ity of inhalation 00:00: daily. [place] [facility] tiotropium Yes [id number] 18ug Inhale 1 Univers 18 mcg 4-09 capsule ity of inhalation 00:00: daily. [address] Branch tiotropium Yes [id number] 18ug Inhale 1 Univers 18 mcg 4-09 capsule ity of inhalation 00:00: daily. [address] tiotropium Yes [id number] 18ug Inhale 1 Univers 18 mcg 4-09 capsule ity of inhalation 00:00: daily. [place] [address] Medical Branch budesonide- Yes [id number] 2{puff} Inhale 2 Univers formoteroL 8-14 Puffs 2 ity of (SYMBICORT) 00:00: (two) [place] 160-4.5 00 times Medical mcg/actuati daily. Branch on inhaler budesonide- Yes [id number] 2{puff} Inhale 2 Univers formoteroL 8-14 Puffs 2 ity of (SYMBICORT) 00:00: (two) [place] 160-4.5 00 times Medical mcg/actuati daily. Branch on inhaler budesonide- Yes [id number] 2{puff} Inhale 2 Univers formoteroL 8-14 Puffs 2 ity of (SYMBICORT) 00:00: (two) [place] 160-4.5 00 times Medical mcg/actuati daily. Branch on inhaler budesonide- 2020-0 Yes [id number] 2{puff} Inhale 2 Univers formoteroL 8-14 Puffs 2 ity of (SYMBICORT) 00:00: (two) [place] 160-4.5 00 times Medical mcg/actuati daily. Branch on inhaler budesonide- 2020-0 Yes [id number] 2{puff} Inhale 2 Univers formoteroL 8-14 Puffs 2 ity of (SYMBICORT) 00:00: (two) [place] 160-4.5 00 times Medical mcg/actuati daily. Branch on inhaler budesonide- 2019-0 Yes [id number] 2{puff} Inhale 2 Univers formoteroL 8-14 Puffs 2 ity of (SYMBICORT) 00:00: (two) [place] 160-4.5 00 times Medical mcg/actuati daily. Branch on inhaler allopurinoL 2020-0 Yes [id number] 100mg Take 1 Univers 100 mg 4-19 tablet by ity of tablet 00:00: mouth [place] 00 daily. Medical Branch allopurinoL 2020-0 Yes [id number] 100mg Take 1 Univers 100 mg 4-19 tablet by ity of tablet 00:00: mouth [place] 00 daily. Medical Branch allopurinoL 2020-0 Yes [id number] 100mg Take 1 Univers 100 mg 4-19 tablet by ity of tablet 00:00: mouth [place] 00 daily. Medical Branch allopurinoL 2020-0 Yes [id number] 100mg Take 1 Univers 100 mg 4-19 tablet by ity of tablet 00:00: mouth [place] 00 daily. Medical Branch allopurinoL 2020-0 Yes [id number] 100mg Take 1 Univers 100 mg 4-19 tablet by ity of tablet 00:00: mouth [place] 00 daily. Medical Branch allopurinoL 2020-0 Yes [id number] 100mg Take 1 Univers 100 mg 4-19 tablet by ity of tablet 00:00: mouth [place] 00 daily. Medical Branch furosemide 2020-0 Yes [id number] 40mg Take 1 Univers 40 mg 4-18 tablet by ity of tablet 00:00: mouth [place] 00 daily. Medical Branch tamsulosin 2020-0 Yes [id number] .4mg Take 1 Univers 0.4 mg 24 4-18 capsule by ity of hr capsule 00:00: mouth [place] 00 daily. Medical Branch furosemide 2020-0 Yes [id number] 40mg Take 1 Univers 40 mg 4-18 tablet by ity of tablet 00:00: mouth [place] 00 daily. Medical Branch tamsulosin 2020-0 Yes [id number] .4mg Take 1 Univers 0.4 mg 24 4-18 capsule by ity of hr capsule 00:00: mouth [place] 00 daily. Medical Branch furosemide 2020-0 Yes [id number] 40mg Take 1 Univers 40 mg 4-18 tablet by ity of tablet 00:00: mouth [place] 00 daily. Medical Branch tamsulosin 2020-0 Yes [id number] .4mg Take 1 Univers 0.4 mg 24 4-18 capsule by ity of hr capsule 00:00: mouth [place] 00 daily. Medical Branch furosemide 2020-0 Yes [id number] 40mg Take 1 Univers 40 mg 4-18 tablet by ity of tablet 00:00: mouth [place] 00 daily. Medical Branch tamsulosin 2020-0 Yes [id number] .4mg Take 1 Univers 0.4 mg 24 4-18 capsule by ity of hr capsule 00:00: mouth [place] 00 daily. Medical Branch furosemide 2020-0 Yes [id number] 40mg Take 1 Univers 40 mg 4-18 tablet by ity of tablet 00:00: mouth [place] 00 daily. Medical Branch tamsulosin 2020-0 Yes [id number] .4mg Take 1 Univers 0.4 mg 24 4-18 capsule by ity of hr capsule 00:00: mouth [place] 00 daily. Medical Branch furosemide 2020-0 Yes [id number] 40mg Take 1 Univers 40 mg 4-18 tablet by ity of tablet 00:00: mouth [place] 00 daily. Medical Branch tamsulosin 2020-0 Yes [id number] .4mg Take 1 Univers 0.4 mg 24 4-18 capsule by ity of hr capsule 00:00: mouth [place] 00 daily. Medical Branch predniSONE 2019-0 Yes [id number] 40mg Take 2 Univers 20 mg 3-01 tablets by ity of tablet 00:00: mouth [place] 00 daily. Medical Branch predniSONE 2019-0 Yes [id number] 40mg Take 2 Univers 20 mg 3-01 tablets by ity of tablet 00:00: mouth [place] 00 daily. Medical Branch predniSONE 2019-0 Yes [id number] 40mg Take 2 Univers 20 mg 3-01 tablets by ity of tablet 00:00: mouth [place] 00 daily. Medical Branch predniSONE 2019-0 Yes [id number] 40mg Take 2 Univers 20 mg 3-01 tablets by ity of tablet 00:00: mouth [place] 00 daily. Medical Branch predniSONE 2019-0 Yes [id number] 40mg Take 2 Univers 20 mg 3-01 tablets by ity of tablet 00:00: mouth [place] 00 daily. Medical Branch predniSONE 2019-0 Yes [id number] 40mg Take 2 Univers 20 mg 3-01 tablets by ity of tablet 00:00: mouth [place] 00 daily. Medical Branch ipratropium 2019-0 Yes [id number] .5mg Inhale 2.5 Univers 0.02 % 2-28 mL every 4 ity of nebulizer 00:00: (four) [place] solution 00 hours as Medical needed for Branch Wheezing or Shortness of Breath. albuterol 2019-0 Yes [id number] 2.5mg Inhale 3 Univers 2.5 mg /3 2-28 mL every 4 ity of mL (0.083 00:00: (four) [place] %) 00 hours as Medical nebulizer needed for Bran ch solution Wheezing or Shortness of Breath. ipratropium 2019-0 Yes [id number] .5mg Inhale 2.5 Univers 0.02 % 2-28 mL every 4 ity of nebulizer 00:00: (four) [place] solution 00 hours as Medical needed for Branch Wheezing or Shortness of Breath. albuterol 2019-0 Yes [id number] 2.5mg Inhale 3 Univers 2.5 mg /3 2-28 mL every 4 ity of mL (0.083 00:00: (four) [place] %) 00 hours as Medical nebulizer needed for Bran ch solution Wheezing or Shortness of Breath. ipratropium 2019-0 Yes [id number] .5mg Inhale 2.5 Univers 0.02 % 2-28 mL every 4 ity of nebulizer 00:00: (four) [place] solution 00 hours as Medical needed for Branch Wheezing or Shortness of Breath. albuterol 2019-0 Yes [id number] 2.5mg Inhale 3 Univers 2.5 mg /3 2-28 mL every 4 ity of mL (0.083 00:00: (four) [place] %) 00 hours as Medical nebulizer needed for Bran ch solution Wheezing or Shortness of Breath. ipratropium 2019-0 Yes [id number] .5mg Inhale 2.5 Univers 0.02 % 2-28 mL every 4 ity of nebulizer 00:00: (four) [place] solution 00 hours as Medical needed for Branch Wheezing or Shortness of Breath. albuterol 2019-0 Yes [id number] 2.5mg Inhale 3 Univers 2.5 mg /3 2-28 mL every 4 ity of mL (0.083 00:00: (four) [place] %) 00 hours as Medical nebulizer needed for Bran ch solution Wheezing or Shortness of Breath. ipratropium 2019-0 Yes [id number] .5mg Inhale 2.5 Univers 0.02 % 2-28 mL every 4 ity of nebulizer 00:00: (four) [place] solution 00 hours as Medical needed for Branch Wheezing or Shortness of Breath. albuterol 2019-0 Yes [id number] 2.5mg Inhale 3 Univers 2.5 mg /3 2-28 mL every 4 ity of mL (0.083 00:00: (four) [place] %) 00 hours as Medical nebulizer needed for Bran ch solution Wheezing or Shortness of Breath. ipratropium 2019-0 Yes [id number] .5mg Inhale 2.5 Univers 0.02 % 2-28 mL every 4 ity of nebulizer 00:00: (four) [place] solution 00 hours as Medical needed for Branch Wheezing or Shortness of Breath. albuterol 2019-0 Yes [id number] 2.5mg Inhale 3 Univers 2.5 mg /3 2-28 mL every 4 ity of mL (0.083 00:00: (four) [place] %) 00 hours as Medical nebulizer needed for Bran ch solution Wheezing or Shortness of Breath. Immunizations Ordered Filled Immunization Date Status Comments [facility] e Immunization Name Name Influenza High Dose 2021-05-25 Completed Unive rsity of 00:00:00 [facility] Influenza High Dose 2021-05-25 Completed Unive rsity of 00:00:00 [facility] SARS-COV-2 COVID-19 2021-03-28 Completed Unive rsity of PFIZER VACCINE 00:00:00 [facility] SARS-COV-2 COVID-19 2021-03-28 Completed Unive rsity of PFIZER VACCINE 00:00:00 [facility] SARS-COV-2 COVID-19 2021-03-28 Completed Unive rsity of PFIZER VACCINE 00:00:00 [place] [facility] SARS-COV-2 COVID-19 2021-03-28 Completed Unive rsity of PFIZER VACCINE 00:00:00 [facility] SARS-COV-2 COVID-19 2021-03-28 Completed Unive rsity of PFIZER VACCINE 00:00:00 [facility] SARS-COV-2 COVID-19 2021-03-28 Completed Unive rsity of PFIZER VACCINE 00:00:00 [facility] SARS-COV-2 COVID-19 2020-08-19 Completed Unive rsity of PFIZER VACCINE 00:00:00 [facility] SARS-COV-2 COVID-19 2020-08-19 Completed Unive rsity of PFIZER VACCINE 00:00:00 [place] [facility] SARS-COV-2 COVID-19 2020-07-12 Completed Unive rsity of PFIZER VACCINE 00:00:00 [facility] SARS-COV-2 COVID-19 2020-07-12 Completed Unive rsity of PFIZER VACCINE 00:00:00 [facility] Zoster Vaccine 2019-06-05 Completed University of Recombinant 00:00:00 [facility] Zoster Vaccine 2019-06-05 Completed University of Recombinant 00:00:00 [facility] Zoster Vaccine 2019-06-05 Completed University of Recombinant 00:00:00 [facility] Zoster Vaccine 2019-06-05 Completed University of Recombinant 00:00:00 [facility] Zoster Vaccine 2019-06-05 Completed University of Recombinant 00:00:00 [facility] Zoster Vaccine 2019-06-05 Completed University of Recombinant 00:00:00 [facility] Influenza Virus 2018-07-22 Completed Universit y of Vaccine 00:00:00 [facility] Pneumococcal 2018-07-22 Completed University o f Polysaccharide, 00:00:00 [place] Med ical PPSV23 (PNEUMOVAX) [place] Influenza Virus 2018-07-22 Completed Universit y of Vaccine 00:00:00 [facility] Pneumococcal 2018-07-22 Completed University o f Polysaccharide, 00:00:00 [place] Med ical PPSV23 (PNEUMOVAX) [place] Influenza Virus 2018-07-22 Completed Universit y of Vaccine 00:00:00 [facility] Pneumococcal 2018-07-22 Completed University o f Polysaccharide, 00:00:00 [place] Med ical PPSV23 (PNEUMOVAX) Branch Influenza Virus 2018-07-22 Completed Universit y of Vaccine 00:00:00 [facility] Pneumococcal 2018-07-22 Completed University o f Polysaccharide, 00:00:00 [place] Med ical PPSV23 (PNEUMOVAX) Branch Influenza Virus 2018-07-22 Completed Universit y of Vaccine 00:00:00 [facility] Pneumococcal 2018-07-22 Completed University o f Polysaccharide, 00:00:00 [place] Med ical PPSV23 (PNEUMOVAX) Branch Influenza Virus 2018-07-22 Completed Universit y of Vaccine 00:00:00 [facility] Pneumococcal 2018-07-22 Completed University o f Polysaccharide, 00:00:00 [place] Med ical PPSV23 (PNEUMOVAX) Branch Vital Signs Vital Name Observation Time Observation Value Comments Source Systolic blood 2021-09-07 16:52:00 155 mm[Hg] Univer sity [facility] Diastolic blood 2021-09-07 16:52:00 59 mm[Hg] Unive rsity of [facility] Heart rate 2021-09-07 16:52:00 91 /min [facility] Body temperature 2021-09-07 16:52:00 36.83 Gabrielle [facility] Respiratory rate 2021-09-07 16:52:00 20 /min [facility] acute hospital Oxygen saturation in 2021-09-07 16:52:00 91 /min [facility] Arterial blood by [facility] Pulse oximetry Branch Body weight 2021-09-07 09:36:00 70.988 kg [facility] BMI 2021-09-07 09:36:00 21.83 kg/m2 [facility] Body height 2021-09-05 08:39:00 180.3 cm [facility] Oxygen saturation in 2021-05-12 17:23:00 95 /min on 2L [facility] of Arterial blood by [facility] Pulse oximetry Branch Systolic blood 2021-05-12 17:22:00 117 mm[Hg] Univer sity of [facility] Diastolic blood 2021-05-12 17:22:00 59 mm[facility]Hg[facility] Heart rate 2021-05-12 17:22:00 97 /min [facility] Respiratory rate 2021-05-12 17:22:00 22 /min [facility] Body height 2021-05-12 17:22:00 180.3 cm [facility] Body weight 2021-05-12 17:22:00 74.844 kg [facility] BMI 2021-05-12 17:22:00 23.01 kg/m2 [facility] Procedures Procedure Date / Time Performing Clinician Source Performed POCT GLUCOSE (AUTOMATED) 2021-09-07 16:53:00 Juan Devlin [facility] POCT GLUCOSE (AUTOMATED) 2021-09-07 12:35:00 Juan Devlin [facility] BASIC METABOLIC PANEL 2021-09-07 09:46:00 Juan Devlin [facility] (NA, K, CL, CO2, GLUCOSE, Medica l Branch BUN, CREATININE, CA) CBC WITH DIFF 2021-09-07 09:46:00 Juan Devlin [facility] PREPARE PACKED RBC 2021-09-06 22:46:06 Juan Devlin [facility] POCT GLUCOSE (AUTOMATED) 2021-09-06 21:40:00 Juan Devlin [facility] POCT GLUCOSE (AUTOMATED) 2021-09-06 16:48:00 Juan Devlin [facility] POCT GLUCOSE (AUTOMATED) 2021-09-06 13:05:00 Juan Devlin [facility] BASIC METABOLIC PANEL 2021-09-06 11:03:00 Juan Devlin [facility] (NA, K, CL, CO2, GLUCOSE, Medica l Branch BUN, CREATININE, CA) CBC WITH DIFF 2021-09-06 11:03:00 Juan Devlin [facility] VITAMIN B12, LEVEL 2021-09-06 11:02:00 Juan Devlin [facility] FOLATE 2021-09-06 11:02:00 Juan Devlin [facility] POCT GLUCOSE (AUTOMATED) 2021-09-06 01:59:00 Juan eDvlin [facility] POCT GLUCOSE (AUTOMATED) 2021-09-05 22:35:00 Juan Devlin [facility] TRANSFUSE PACKED RBC 2021-09-05 17:41:00 Anuradha Rojas [facility] PREPARE PACKED RBC 2021-09-05 17:13:11 Anuradha Rojas [facility] POCT GLUCOSE (AUTOMATED) 2021-09-05 16:40:00 [facility] 2021-09-05 16:39:34 Juan Devlin [facility] ANGIOGRAM [facility] XR CHEST 1 VW 2021-09-05 09:30:42 Anuradha Rojas [facility] HB ABO GROUPING 2021-09-05 09:26:00 Anuradha Rojas [facility] COVID-19 (ID NOW RAPID 2021-09-05 09:25:00 Anuradha Rojas [facility] TESTING) Medical [place] [facility] ONLY COVID 2021-09-05 09:25:00 Anuradha Rojas [facility] INTERPRETATION [facility] LIPASE 2021-09-05 08:51:00 Anuradha Rojas [facility] TROPONIN I 2021-09-05 08:51:00 Anuradha Rojas [facility] COMP. METABOLIC PANEL 2021-09-05 08:51:00 Anuradha Rojas [facility] ([id number]) [facility] CBC WITH DIFF 2021-09-05 08:51:00 Anuradha Rojas [facility] RETICULOCYTES AUTOMATED 2021-09-05 08:51:00 Juan Devlin [facility] N-TERMINAL PRO-BNP 2021-09-05 08:51:00 Anuradha Rojas [facility] HB ECG ROUTINE & RHYTHM 2021-09-05 08:38:04 Anuradha Rojas [facility] Encounters Start End Encounter Admission Attending Care Care Encounter Source Date/Time Date/Time Type Type Clinicians Facility Department ID 2021-09-09 2021-09-09 Outpatient R ARMOND SPANN [facility] [id number] Univers 09:00:00 09:00:00 ARMOND SPANN [id number] i ty of [facility] 2021-09-09 2021-09-09 Outpatient R ARMOND SPANN [facility] [id number] Univers 09:00:00 09:00:00 ARMOND SPANN i ty of [facility] 2021-09-08 2021-09-08 Transition REBECCA Cheung [id number] Univers 00:00:00 00:00:00 of Care Shonda TOWNSEND [id number] it y of [place] 4[place]2.686 [place] [id number] [facility] 403 Branch 2021-09-05 2021-09-07 Inpatient X GABBY NHMARISELA EDENILSON [id number] Univers 03:38:00 13:55:00 JUAN ayala of [facility] 2021-09-05 2021-09-07 [facility] Anuradha Rojas [facility] 1.2.840. [id number] Univers 03:38:00 13:55:00 Encounter Marko Gallegos [id number] ity of Juan Devlin 4.2.7.2.686 [facility] [id number] [facility] 0[address] [place] 2021-08-11 2021-08-11 Telephone Maria Ines NHMARISELA [id number] Univers 00:00:00 00:00:00 Armond LINTON [id number] i ty of [place] 4[place]2.686 [place] PROF[place] [id number] Hi dical NAL 5 [facility] 2021-06-22 2021-06-22 Telephone Maria Ines [facility] [id number] Univers 00:00:00 00:00:00 Armond LINTON [id number] i ty [place] 4[place].7.2.686 [place] PROF[place] [id number] Hi dical NAL [address] [place] [address] 2021-05-12 2021-05-12 Outpatient R ARMOND SPANN [facility] [id number] Univers 11:00:00 11:45:15 ARMOND SPANN i ty of [facility] 2021-05-12 2021-05-12 Office Maria Ines NHMARISELA [id number] [facility] [place] [facility] 10:49:06 11:19:06 Visit Armond LINTON [id number] i ty of [place] 4.2.7.2.686 Tosin VILLAVICENCIO [id number] [address] 2020-07-26 2020-07-26 Orders Doctor ANGIE [id number] 00:00:00 00:00:00 Only Unassigned, VICKI 350.1.13.10 [facility] 4.2.7.2.686 [id number] [id number] 2020-07-15 2020-07-15 Orders Doctor ADAMS [id number] 00:00:00 00:00:00 Only Unassigned, VICKI 350.1.13.10 [facility] 4.2.7.2.686 [id number] [id number] 2020-06-24 2020-06-24 Orders Doctor ADAMS [id number] 00:00:00 00:00:00 Only Unassigned, VICKI 350.1.13.10 [facility] 4.2.7.2.686 [id number] [id number] 2020-06-14 2020-06-14 Orders Doctor ANGIE Remy.[id number] 00:00:00 00:00:00 Only Unassigned, VICKI 350.1.13.10 [facility] 4.2.7.2.686 [id number] [id number] 2020-05-31 2020-05-31 Orders Doctor ANGIE [id number] 00:00:00 00:00:00 Only Unassigned, VICKI 350.1.13.10 [facility] 4.2.7.2.686 [id number] [id number] 2020-05-07 2020-05-07 Office Maria Ines NHMARISELA [id number] 08:33:21 08:53:21 Visit Armond Linton 350.1.13.10 [place] 4.2.7.2.686 ron [id number] nal 085 Building Results Test Description Test Time Test Comments Results Result Comments Source POCT GLUCOSE (AUTOMATED) 2021-09-07 17:23:02 Test Item Value Reference Range Interpretation Comme nts POCT GLU (test code = 3549219199) 93 mg/dL 70-110 Lab Interpretation (test code = 12448-2) [facility] [id number] 15:38:58 Test Item Value Reference Range Interpretation Comments VIT B12 (test code = 575 pg/mL 240-930 5372588177) MOIZ (test code = MOIZ) Biotin has been reported to cause a positive bias, interpret results relative to patient's use of biotin. Lab Interpretation (test Normal code = 51500-0) [facility]2021-[facility]-07 13:32:58 Test Item Value Reference Range Interpretation Comments POCT GLU (test code = 9646577635) 103 mg/dL 70-110 Lab Interpretation (test code = Normal 51835-8) [facility] (NA, K, CL, CO2, GLUCOSE, BUN, CREATININE, CA)2021-09-07 11:25:34 Test Item Value Reference Range Interpretation Comments NA (test code = 136 mmol/L 135-145 7816567980) K (test code = 4.1 mmol/L 3.5-5.0 7323860193) CL (test code = 102 mmol/L 98-108 5579097854) CO2 TOTAL (test code = 32 mmol/L 23-31 H 1098077358) AGAP (test code = 2-16 2487311396) BUN (test code = 21 mg/dL 7-23 3120613466) GLUCOSE (test code = 88 mg/dL 70-110 5486419166) CREATININE (test code = 1.17 mg/dL 0.60-1.25 7818356467) CALCIUM (test code = 8.9 mg/dL 8.6-10.6 2794653542) eGFR (test code = mL/min/1.73m2 6142403994) MOIZ (test code = MOIZ) Association of [...] tests). Lab Interpretation Abnormal (test code = 64199-1) [facility] WITH [id number] 10:52:45 Test Item Value Reference Range Interpretation Comments WBC (test code = See_Comment [Automated 1747-2) message] The sy stem which generated this result transmitted reference range : 4.20 - 10.70 10*3/?L. The reference range was not used to interpret this result as normal/abnormal . RBC (test code = See_Comment L [Automated 858-8) message] The sy stem which generated this [...] (test code = 71.6 fL 38.5-51.6 H 04421-6) RDW-CV (test code = 21.1 % 12.1-15.4 H 788-0) PLT (test code = See_Comment [Automated 777-3) message] The sy stem which generated this result transmitted reference range : 150 - 328 10*3/ ?L. The reference r fredi was not used to interpret this result as normal/abnormal . MPV (test code = 11.6 fL 9.8-13.0 64326-1) NRBC/100 WBC (test See_Comment [Automat ed code = 9847186005) message] The system which generated this result transmitted reference range : 0.0 - 10.0 /100 WBCs. The refer ence range was not u sed to interpret th is result as normal/abnormal . NRBC x10^3 (test code <0.01 See_Comment [Auto mated = 6532492033) message] The s ystem which generated this result transmitted reference range : 10*3/?L. The reference range was not used to interpret this result as normal/abnormal . GRAN MAT (NEUT) % 77.6 % (test code = 770-8) IMM GRAN % (test code 0.50 % = 2426358620) LYMPH % (test code = 12.1 % 736-9) MONO % (test code = 7.9 % 5905-5) EOS % (test code = 1.4 % 713-8) BASO % (test code = 0.5 % 706-2) GRAN MAT x10^3(ANC) 4.88 10*3/uL 1.99-6.95 (test code = 8817842862) IMM GRAN x10^3 (test 0.03 10*3/uL 0.00-0.06 code = 9994616650) LYMPH x10^3 (test code 0.76 10*3/uL 1.09-3.23 L = 731-0) MONO x10^3 (test code 0.50 10*3/uL 0.36-1.02 = 742-7) EOS x10^3 (test code = 0.09 10*3/uL 0.06-0.53 711-2) BASO x10^3 (test code 0.03 10*3/uL 0.01-0.09 = 704-7) Lab Interpretation Abnormal (test code = 30236-2) [facility] RBC (in units), 1 Units 2021-09-06 22:46:06 Test Item Value Reference Range Interpretation Comments Cross Match Result Compatible (test code = 4409) ISBT Blood Type Code (test code = 693064) Unit Blood Type (test O Neg code = 4410) Unit Number (test [id number] code = 4411) Blood Expiration Date & Time (test code = 656907) Status Information Issued (test code = 4412) Product Red Blood Cells Identification (test code = 4413) Product Code (test [id number] Performed at [facility] code = 4414) Laboratory Services - [facility] [address] [place] [address]Uqbr Free: [phone] A No. [id number] [facility] GLUCOSE (AUTOMATED)2021-09-06 21:56:24 Test Item Value Reference Range Interpretation Comments POCT GLU (test code = 5296599829) 102 mg/dL 70-110 Lab Interpretation (test code = Normal 32448-0) [facility] GLUCOSE (AUTOMATED)2021-09-06 17:02:30 Test Item Value Reference Range Interpretation Comments POCT GLU (test code = 4654945184) 100 mg/dL 70-110 Lab Interpretation (test code = Normal 66318-3) [facility]2022-[facility]-15 16:53:34 Test Item Value Reference Range Interpretation Comments FOLATE SER (test code = 6.3 ng/mL 3.0-20.0 Biot in has been 4362746077) reported to cau se a positive bias, interpret resul ts relative to patient's use o f biotin. Lab Interpretation (test Normal code = 11848-4) [facility] GLUCOSE (AUTOMATED)2021-09-06 13:10:14 Test Item Value Reference Range Interpretation Comments POCT GLU (test code = 9976583199) 127 mg/dL 70-110 H Lab Interpretation (test code = Abnormal 74747-7) [facility] METABOLIC PANEL (NA, K, CL, CO2, GLUCOSE, BUN, CREATININE, CA)2021-09-06 12:40:02 Test Item Value Reference Range Interpretation Comments NA (test code = 138 mmol/L 135-145 0559973669) K (test code = 4.4 mmol/L 3.5-5.0 1703075072) CL (test code = 104 mmol/L 98-108 2019680470) CO2 TOTAL (test code = 32 mmol/L 23-31 H 3797566755) AGAP (test code = 2-16 7464875287) BUN (test code = 25 mg/dL 7-23 H 2073048614) GLUCOSE (test code = 119 mg/dL 70-110 H 8407846297) CREATININE (test code = 1.41 mg/dL 0.60-1.25 H 8947741837) CALCIUM (test code = 9.0 mg/dL 8.6-10.6 2667247502) eGFR (test code = mL/min/1.73m2 9146156757) MOIZ (test code = MOIZ) Association of [...] tests). Lab Interpretation Abnormal (test code = 12027-0) [facility] WITH [id number] 12:03:02 Test Item Value Reference Range Interpretation [...] (test code = 73.2 fL 38.5-51.6 H 91808-6) RDW-CV (test code = 21.5 % 12.1-15.4 H 788-0) PLT (test code = See_Comment [Automated 777-3) message] The sy stem which generated this result transmitted reference range : 150 - 328 10*3/ ?L. The reference r fredi was not used to interpret this result as normal/abnormal . MPV (test code = 11.2 fL 9.8-13.0 88786-1) NRBC/100 WBC (test See_Comment [Automat ed code = 4551790498) message] The system which generated this result transmitted reference range : 0.0 - 10.0 /100 WBCs. The refer ence range was not u sed to interpret th is result as normal/abnormal . NRBC x10^3 (test code See_Comment [Auto mated = 6394215790) message] The s ystem which generated this result transmitted reference range : 10*3/?L. The reference range was not used to interpret this result as normal/abnormal . GRAN MAT (NEUT) % 75.0 % (test code = 770-8) IMM GRAN % (test code 0.20 % = 7141949073) LYMPH % (test code = 12.9 % 736-9) MONO % (test code = 11.5 % 5905-5) EOS % (test code = 0.2 % 713-8) BASO % (test code = 0.2 % 706-2) GRAN MAT x10^3(ANC) 4.12 10*3/uL 1.99-6.95 (test code = 1739714719) IMM GRAN x10^3 (test <0.03 0.00-0.06 code = 0261631600) LYMPH x10^3 (test code 0.71 10*3/uL 1.09-3.23 L = 731-0) MONO x10^3 (test code 0.63 10*3/uL 0.36-1.02 = 742-7) EOS x10^3 (test code = <0.03 0.06-0.53 L 711-2) BASO x10^3 (test code <0.03 0.01-0.09 = 704-7) Lab Interpretation Abnormal (test code = 65081-1) [facility] GLUCOSE (AUTOMATED)2021-09-06 03:13:48 Test Item Value Reference Range Interpretation Comments POCT GLU (test code = 1063636439) 130 mg/dL 70-110 H Lab Interpretation (test code = Abnormal 82696-9) [facility] GLUCOSE (AUTOMATED)2021-09-05 22:47:46 Test Item Value Reference Range Interpretation Comments POCT GLU (test code = 5121603366) 178 mg/dL 70-110 H Lab Interpretation (test code = Abnormal 15935-6) [facility] RBC (in units), 1 Units 2021-09-05 17:13:11 Test Item Value Reference Range Interpretation Comments Unit Blood Type (test O Neg code = 4410) ISBT Blood Type Code (test code = 570521) Unit Number (test [id number] code = 4411) Blood Expiration Date & Time (test code = 341239) Status Information Issued (test code = 4412) Product Red Blood Cells Identification (test code = 4413) Product Code (test [id number] Performed at [facility] code = 4414) Laboratory Services - [facility] Blood [address] [id number] Free: [phone] A No. [id number] Cross Match Result Compatible (test code = 4409) [facility]2021-09-05 16:51:03 Test Item Value Reference Range Interpretation Comments POCT GLU (test code = 1987543281) 264 mg/dL 70-110 H Lab Interpretation (test code = Abnormal 77637-6) [facility]neRETICULOCYTES [id number] 16:45:00 Test Item Value Reference Range Interpretation Comments RETIC Count Automated 4.35 % 0.59-2.24 H (test code = 5111906033) RETIC Absolute Count See_Comment [Autom ated message] (test code = 8706417695) The system which generated this result transmitted ref erence range: 0.0260 - 0.1170 10*6/?L. The reference range was not used to int erpret this result as normal/abnormal . IRF % (test code = 17.80 % 2.00-19.10 9793168788) RETIC-HE (test code = 24.0 pg 27.3-36.4 L 9452882327) Lab Interpretation (test Abnormal code = 03206-9) [facility] and Screen - ONCE [id number] 10:02:24 Test Item Value Reference Range Interpretation Comments ABO & RH (test code B Negative Performe d at [facility] = 20) Laboratory Serv ices - [facility] Blood [address] [id number] Free: [phone] A No. [id number] IAT (test code = Negative Performed a t [facility] 1185) Laboratory Serv [facility] Blood [address] [place] [address]Bsgo Free: [phone] A No. [id number] [facility]neTroponin [id number] 09:29:18 Test Item Value Reference Interpretation Comments Range TROPONIN I (test 0.006 ng/mL See_Comment [Automated code = 0641968948) message] The system which generated this result [...] biotin. Lab Interpretation Normal (test code = 67005-2) [facility]ne[facility]-TERMINAL [id number] 09:25:57 Test Item Value Reference Range Interpretation Comments NT-proBNP (test code 1560 pg/mL See_Comment H [Autom ated = 1079478781) message] The system which generated this result transmitted reference range : <=450. The reference range was not used to interpret this result as normal/abnormal . MOIZ (test code = MOIZ) Biotin has been reported to cause a negative bias, interpret results relative to patient's use of biotin. Lab Interpretation Abnormal (test code = 07517-2) [facility]MP2022-03-14 09:17:36 Test Item Value Reference Range Interpretation Comments NA (test code = 140 mmol/L 135-145 9660453123) K (test code = 4.2 mmol/L 3.5-5.0 9038108398) CL (test code = 106 mmol/L 98-108 4533885121) CO2 TOTAL (test code = 28 mmol/L 23-31 3745488770) AGAP (test code = 2-16 3486951858) BUN (test code = 16 mg/dL 7-23 8744613519) GLUCOSE (test code = 147 mg/dL 70-110 H 0897740106) CREATININE (test code = 1.20 mg/dL 0.60-1.25 2648588759) TOTAL BILI (test code = 0.7 mg/dL 0.1-1.7 4832057187) CALCIUM (test code = 9.5 mg/dL 8.6-10.6 4496191460) T PROTEIN (test code = 6.0 g/dL 6.3-8.2 L 5976815686) ALBUMIN (test code = 3.2 g/dL 3.5-5.0 L 2666926833) ALK PHOS (test code = 55 U/L 34-122 5599552906) ALTv (test code = 8 U/L 5-50 1742-6) AST(SGOT) (test code = 17 U/L 13-40 3679830333) eGFR (test code = mL/min/1.73m2 5111552541) MOIZ (test code = MOIZ) Association of [...] tests). Lab Interpretation Abnormal (test code = 67288-7) [facility]2022-[facility]-14 09:17:16 Test Item Value Reference Range Interpretation Comments LIPASE (test code = 0409226187) 72 U/L 0-220 Lab Interpretation (test code = Normal 30496-9) [facility]neCB with [id number] 09:03:13 Test Item Value Reference Range Interpretation [...] (test code = 73.6 fL 38.5-51.6 H 36810-4) RDW-CV (test code = 20.9 % 12.1-15.4 H 788-0) PLT (test code = See_Comment H [Automated 777-3) message] The sy stem which generated this result transmitted reference range : 150 - 328 10*3/ ?L. The reference r fredi was not used to interpret this result as normal/abnormal . MPV (test code = 10.7 fL 9.8-13.0 54026-9) NRBC/100 WBC (test See_Comment [Automat ed code = 0272921396) message] The system which generated this result transmitted reference range : 0.0 - 10.0 /100 WBCs. The refer ence range was not u sed to interpret th is result as normal/abnormal . NRBC x10^3 (test code <0.01 See_Comment [Auto mated = 2697812426) message] The s ystem which generated this result transmitted reference range : 10*3/?L. The reference range was not used to interpret this result as normal/abnormal . GRAN MAT (NEUT) % 71.8 % (test code = 770-8) IMM GRAN % (test code 0.40 % = 8894956484) LYMPH % (test code = 16.8 % 736-9) MONO % (test code = 7.7 % 5905-5) EOS % (test code = 2.9 % 713-8) BASO % (test code = 0.4 % 706-2) GRAN MAT x10^3(ANC) 5.85 10*3/uL 1.99-6.95 (test code = 3585413949) IMM GRAN x10^3 (test 0.03 10*3/uL 0.00-0.06 code = 8641149187) LYMPH x10^3 (test code 1.37 10*3/uL 1.09-3.23 = 731-0) MONO x10^3 (test code 0.63 10*3/uL 0.36-1.02 = 742-7) EOS x10^3 (test code = 0.24 10*3/uL 0.06-0.53 711-2) BASO x10^3 (test code 0.03 10*3/uL 0.01-0.09 = 704-7) Lab Interpretation Abnormal (test code = 09753-9) [facility]"
[2021-10-04] MEDS ORDERED: NA CHLORIDE 0.9% 250 ML ONE ×2 (11:42→13:51)
[2021-10-04 13:20] VITALS: BMI 20.6
[2021-10-04 16:26] VITALS: O2SAT 100
[2021-10-04 16:28] VITALS: BP 123/55; TEMP 99.1
[2021-10-04 18:25] LABS: Hematocrit 23.7 % (39.6-49.0)
== END 2021-10-04 18:08 | disposition home or self-care (01) ==
LOC: ER 09:29 → BLT 09:29 → EDSTATUS 09:42 → BLT 18:08
PROVIDERS: ATTEND Internal Medicine Hematology & Oncology
DX: D50.0 Iron deficiency anemia secondary to blood loss (chronic) (principal); N18.30 Chronic kidney disease, stage 3 unspecified; D63.1 Anemia in chronic kidney disease; I10 Essential (primary) hypertension
CPT/HCPCS: 36415; 86900; 86850; 86901; 85018; 85014; 36430; P9016 ×2; J7050 ×2

== ENCOUNTER 2021-10-12 07:31 | Day surgery (SDC) | payer OTHER ==
[2021-10-12] MEDS ORDERED: NA CHLORIDE 0.9% 250 ML ONE ×2 (07:58→10:39)
[2021-10-12 08:57] VITALS: BMI 22.1
[2021-10-12 13:39] VITALS: BP 117/40; TEMP 98.2; O2SAT 100
[2021-10-12 15:33] LABS: Hematocrit 21.5 % (39.6-49.0)
== END 2021-10-12 15:50 | disposition home or self-care (01) ==
LOC: DS 07:31
PROVIDERS: ATTEND Internal Medicine Hematology & Oncology
DX: N18.9 Chronic kidney disease, unspecified (principal); D63.1 Anemia in chronic kidney disease; D50.0 Iron deficiency anemia secondary to blood loss (chronic); I10 Essential (primary) hypertension
CPT/HCPCS: 36415; 86900; 86850; 86901; 85018; 85014; 36430; P9016 ×2; J7050 ×2